=== PATIENT | female | born 1990 | race Caucasian/White ===

== ENCOUNTER 2017-11-23 12:30 | Inpatient (IN) | payer OTHER ==
[2017-11-23] MEDS ORDERED: Ringers Lactate 1,000 ML IV PRN (14:45)
[2017-11-23] MEDS ORDERED: CEFAZOLIN/SWI 2gm 2 GM/20 ML SYR IV ONE (14:48)
[2017-11-23] MEDS ORDERED: NA CIT/CITRIC AC 30 ML ORAL UDC PO ONE (14:58)
[2017-11-23] MEDS ORDERED: METOCLOPRAMIDE 10 MG/2mL INJ IV SCH (15:00)
[2017-11-23] MEDS ORDERED: Ringers Lactate 1,000 ML IV SCH (15:00)
[2017-11-23] MEDS ORDERED: BUPIVACAINE 0.75% (PF) 2 ML SP ONE (15:35)
[2017-11-23] MEDS ORDERED: MORPHINE SULFATE/PF 1 MG/ML (10 ML AMP) ONE (15:39)
[2017-11-23] MEDS ORDERED: LIDOCAINE 1% MPF 5 ML VIAL ONE (15:39)
[2017-11-23 15:46] LABS: RPR Titer ND
[2017-11-23 15:55] LABS: Absolute Lymphocytes (CBC) 2.1 K/uL (0.7-4.9); Absolute Monocytes 1.3 K/uL (0.1-1.3); Absolute Neutrophil 7.7 K/uL (1.8-8.0); Basophils % 0.1 % (0-1.3); Eosinophils % 0.5 % (0-4.4); Hematocrit 31.6 % (36.0-45.0); Lymphocytes % 18.6 % (15.3-44.8); MCH 30.1 pg (27.0-35.0); MCV 87.2 fL (80-100); MPV 8.7 fL (7.6-11.3); Monocytes % 11.9 % (3.3-12.3); RBC Red Blood Cell Count 3.62 M/uL (3.86-4.86)
[2017-11-23 16:01] LABS: Urine Appearance CLEAR; Urine Bilirubin NEGATIVE (NEG); Urine Blood NEGATIVE (NEG); Urine Color YELLOW; Urine Glucose 2+ (NEG); Urine Protein NEGATIVE (NEG)
[2017-11-23 16:06] LABS: Urine Microscopic Reflex NO UMIC
[2017-11-23] MEDS ORDERED: EPHEDRINE SULF 50 MG/ML SYR ONE (16:20)
[2017-11-23] MEDS ORDERED: OXYTOCIN 10 UNIT/ML ML IV ONE (16:27)
[2017-11-23] MEDS ORDERED: FENTANYL CITR 250 MCG/5 ML ONE (16:41)
[2017-11-23] MEDS ORDERED: Oxycodone HCl/Acetaminophen 1 TAB TAB PO PRN (17:03)
[2017-11-23] MEDS ORDERED: BISACODYL 10 MG RECTAL SUPP RECT PRN (17:03)
[2017-11-23] MEDS ORDERED: ACETAMINOPHEN 500 MG TAB PO PRN (17:03)
[2017-11-23] MEDS ORDERED: DOCUSATE NA/SENNA CONC 1 TAB PO PRN (17:03)
[2017-11-23] MEDS ORDERED: KETOROLAC 30 MG/ML INJ IV PRN (17:05)
[2017-11-23] MEDS ORDERED: MORPHINE 4 MG/ML SYR IV PRN (17:05)
--- NOTE | 2017-11-23 17:10 | P.OP ---
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 Suh) Estimated blood loss: 800cc Specimen: cord blood, placenta Findings: female , cephalic presentation, normal uterus,ovaries and tubes Operative Technique: The patient was taken to the operating room where spinal anesthesia was administered without difficulty. The patient was prepped and draped in the usual sterile fashion in the dorsal supine position with a leftward tilt. A Pfannenstiel skin incision was made with the scalpel and carried through to the underlying layer of fascia using the scalpel. The fascia was incised in the midline and extended laterally using Londono scissors. Los clamps were used to elevate the superior aspect of the fascial incision, which was elevated, and the underlying rectus muscles were dissected off bluntly and using Londono scissors. Attention was then turned to the inferior aspect of the fascial incision, which in similar fashion was grasped with Los clamps, elevated, and the underlying rectus muscles were dissected off bluntly and using the Bovie. The rectus muscles were dissected in the midline. The peritoneum was identified and entered using Metzenbaum scissors; this incision was extended superiorly and inferiorly with good visualization of the bladder. The bladder blade was inserted. The vesicouterine peritoneum was identified and entered sharply using Metzenbaum scissors. This incision was extended laterally and the bladder flap was created digitally. The bladder blade was reinserted. The lower uterine segment was incised in a transverse fashion using the scalpel and extended using bandage scissors as well as manual traction. Clear fluid was noted. The was subsequently delivered using a Arleth vacuum due to anteflexed head and difficulty in delivering the 's head without the Arleth. The nose and mouth were bulb suctioned. The cord was clamped and cut. The infant was subsequently handed to the awaiting nursery nurse. The placenta was delivered spontaneously intact with a three-vessel cord noted. The uterus was exteriorized and cleared of all clots and debris. The uterine incision was repaired in 2 layers using 1 vicryl sutures. Hemostasis was visualized. The uterus was returned to the abdomen. The uterine incision was reexamined and it was noted to be hemostatic. The rectus muscles were reapproximated in the midline using 0 Vicryl. The fascia was closed with 1 PDS suture, the subcutaneous layer was closed with 2-0 plain gut, and the skin was closed with 3.0 vicryl on a Dave needle. Sponge, lap, and instrument counts were correct x2. The patient was stable at the completion of the procedure and was subsequently transferred to the recovery room in stable condition. Female infant delivered on 11/23/2017 at 4:24 p.m.. Apgars 9 and 9. Weight was 8 lb 14 oz. Complications: None Drain(s): Urinary catheter Transferred to: Recovery Room Condition: Good
[2017-11-23] MEDS ORDERED: CARBOPROST TROME 250 MCG/ML IM ONE (17:38)
[2017-11-23] MEDS ORDERED: METHYLERGONOVINE 0.2MG/ML AMP IM ONE (17:39)
[2017-11-23 18:24] VITALS: BMI 40.6
[2017-11-23] MEDS ORDERED: INFLUENZA VACCINE (for 3y+) 0.5 ML DOSE IMVAC ONE (20:00)
--- NOTE | 2017-11-24 02:22 | HP ---
Date of Admission: 11/23/2017 History Of Present Illness: Viola is a 27-year-old, 2, para 1-0-0-1, who presents at 38 week s gestation for repeat section. The patient was seen in the office today and reported and n o movements and was having pelvic pressure. The patient was found to be 3-4 cm dilated. There fore, decision was made to send patient to Labor and Delivery for repeat section. The patie nt denies vaginal bleeding. She is having some mucousy discharge. She reports irregular contraction s. The patient's care has been complicated by obesity and anemia. See records for further details. Past Medical History: Significant for obesity. Past Surgical History: in 2006. 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 No abnormal Paps. Social History: She is . Denies tobacco, alcohol or drug use. Family History: Noncontributory. The patient has been seen by [facility] as well for this and fe parag growth has been above-average. The patient requested a tubal ligation, however, she was denied b y the administration. Physical Examination: Vital Signs: On admission, the patient's blood pressure is 113/61, pulse of 102, respirations 18. T he patient is afebrile. General: The patient is resting in bed, slightly anxious. Head and Neck: Normocephalic, atraumatic. Neck: Supple. Heart: Regular rate and rhythm. Respiratory: Symmetric nonlabored breathing. Abdomen: Gravid. Larger than dates. Bilateral lower extremities mild edema bilaterally. Vaginal: 3 cm dilated, 60% effaced, -3 station. Membranes intact. Vertex presentation. Laboratory Data: heart rate monitoring reveals baseline heart rate of 140, category 2 tr acing. [place], irregular contractions noted. Assessment And Plan: Viola Yadav is obese, 27-year-old, 2, para 1-0-0-1 at 38 weeks gestat ion, complaining of decreased movements and contractions with a history of 1 prior sec tion, presents for repeat section today. Routine preoperative medications given including 2 g of Ancef. Anticipate routine section. Hemoglobin is 10.9, hematocrit is 31.6, Rh positi ve. /CARMEN Voice ID: [id number]
[2017-11-24] MEDS ORDERED: OXYTOCIN 10 UNIT/ML ML IV ONE (03:20)
[2017-11-24] MEDS ORDERED: LIDOCAINE 1% MPF 30 ML VIAL ONE (03:21)
[2017-11-24] MEDS ORDERED: OXYTOCIN/LR 0 UNIT/0 ML BAG IV ONE (03:21)
[2017-11-24] MEDS ORDERED: CARBOPROST TROME 250 MCG/ML IM ONE (03:21)
[2017-11-24] MEDS ORDERED: METHYLERGONOVINE 0.2MG/ML AMP IM ONE (03:21)
[2017-11-24] MEDS ORDERED: MIDAZOLAM HCL 2 MG/2 ML INJ ONE (03:29)
[2017-11-24] MEDS ORDERED: MEPERIDINE HCL 50 MG/ML AMP ONE (03:29)
[2017-11-24 03:36] LABS: RPR (Rapid Plasma Reagin) NON-REACT (NON-REACT)
[2017-11-24 05:16] LABS: Absolute Lymphocytes (CBC) 2.1 K/uL (0.7-4.9); Absolute Neutrophil 11.5 K/uL (1.8-8.0); Basophils % 0.1 % (0-1.3); Eosinophils % 0.2 % (0-4.4); Hematocrit 30.3 % (36.0-45.0); Lymphocytes % 13.3 % (15.3-44.8); MCH 29.9 pg (27.0-35.0); MCV 86.6 fL (80-100); MPV 8.6 fL (7.6-11.3); Monocytes % 12.8 % (3.3-12.3)
[2017-11-24] MEDS: Oxycodone HCl/Acetaminophen 1 TAB TAB PO PRN ×3 (07:40→19:30)
[2017-11-24] MEDS ORDERED: FAMOTIDINE 20 MG/2 ML VIAL IV ONE (14:58)
[2017-11-24] MEDS ORDERED: Tdap (Diph,Pertuss(Acell),Tet Vac) 0.5 ML SYR IMVAC ONE ×2 (18:10→18:19)
[2017-11-24] MEDS ORDERED: INFLUENZA VACCINE (for 3y+) 0.5 ML DOSE IMVAC ONE (18:19)
[2017-11-25] MEDS: IBUPROFEN 200 MG TAB PO PRN ×2 (05:33→10:38)
[2017-11-25 07:58] VITALS: BP 116/80; TEMP 97.9
[2017-11-27 04:21] LABS: HBsAG Nonreactive (Nonreactive)
== END 2017-11-25 10:55 | disposition home or self-care (01) | DRG 788 ==
LOC: 2ND-WC 14:37
PROVIDERS: ADMIT Student in an Organized Health Care Education/Training Program; ATTEND Student in an Organized Health Care Education/Training Program
PROC: 10D07Z6 Extraction of Products of Conception, Vacuum, Via Natural or Artificial Opening (ICD-10-PCS; 2017-11-23)
PROC: 10D00Z1 Extraction of Products of Conception, Low, Open Approach (ICD-10-PCS; principal; 2017-11-23 16:00)
DX: O36.8130 Decreased fetal movements, third trimester, not applicable or unspecified (principal); O62.2 Other uterine inertia; Z3A.38 38 weeks gestation of pregnancy; Z37.0 Single live birth; O99.213 Obesity complicating pregnancy, third trimester; O99.013 Anemia complicating pregnancy, third trimester; D64.9 Anemia, unspecified; O34.211 Maternal care for low transverse scar from previous cesarean delivery; O76 Abnormality in fetal heart rate and rhythm complicating labor and delivery; O36.63X0 Maternal care for excessive fetal growth, third trimester, not applicable or unspecified
CPT/HCPCS: 36415; 81003; 85025; 86592; 86900; 86901; 87340; 88307; 90715; J0690; J2175; J2210; J2250; J2590; J2765; Q2035

== ENCOUNTER 2018-01-11 20:20 | Emergency (ER) | payer OTHER ==
--- NOTE | 2018-01-11 21:15 | EDPHYS ---
Physician Documentation [facility] Name: Viola Yadav Age: 27 yrs Sex: Female : 1990 Arrival Date: 01/11/2018 Time: 20:26 Bed 7 Private MD: ED Physician Milad Schulz HPI: 01/11 21:12 This 27 yrs old Female presents to ER via Ambulatory with complaints of Psych gs Problem. 21:12 The patient presents to the emergency department with depression, paranoia, psychosis. gs Onset: The symptoms/episode began/occurred 2 week(s) ago, and became persistent. Associated signs and symptoms: Pertinent negatives: homicidal ideation, suicide ideation. Severity of symptoms: At their worst the symptoms were moderate in the emergency department the symptoms are unchanged. The patient has experienced similar episodes in the past. 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 - Social history:: Smoking status: Patient/guardian denies using tobacco, Patient uses alcohol, but reports only rare drinking. Patient/guardian denies using street drugs. - Ebola Screening: : Patient denies travel to an Ebola-affected area in the 21 days before illness onset. ROS: 21:12 All other systems are negative. gs Exam: 21:12 Head/Face: Normocephalic, atraumatic. Eyes: Pupils equal round and reactive to light, gs extra-ocular motions intact. Lids and lashes normal. Conjunctiva and sclera are non-icteric and not injected. Cornea within normal limits. Periorbital areas with no swelling, redness, or edema. ENT: Nares patent. No nasal discharge, no septal abnormalities noted. Tympanic membranes are normal and external auditory canals are clear. Oropharynx with no redness, swelling, or masses, exudates, or evidence of obstruction, uvula midline. Mucous membranes moist. Neck: Trachea midline, no thyromegaly or masses palpated, and no cervical lymphadenopathy. Supple, full range of motion without nuchal rigidity, or vertebral point tenderness. No Meningismus. Chest/axilla: Normal chest wall appearance and motion. Nontender with no deformity. No lesions are appreciated. Cardiovascular: Regular rate and rhythm with a normal S1 and S2. No gallops, murmurs, or rubs. Normal PMI, no JVD. No pulse deficits. Respiratory: Lungs have equal breath sounds bilaterally, clear to auscultation and percussion. No rales, rhonchi or wheezes noted. No increased work of breathing, no retractions or nasal flaring. Abdomen/GI: Soft, non-tender, with normal bowel sounds. No distension or tympany. No guarding or rebound. No evidence of tenderness throughout. Back: No spinal tenderness. No costovertebral tenderness. Full range of motion. MS/ Extremity: Pulses equal, no cyanosis. Neurovascular intact. Full, normal range of motion. Neuro: Awake and alert, GCS 15, oriented to person, place, time, and situation. Cranial nerves II-XII grossly intact. Motor strength 5/5 in all extremities. Sensory grossly intact. Cerebellar exam normal. Normal gait. 21:12 Constitutional: The patient appears alert, awake. 21:12 Skin: injury, hash ramsay left forearm very superficial. 21:12 Psych: Behavior/mood is pleasant, Affect is calm, Oriented to person, place, time, Patient has no thoughts/intents to harm self or others. Judgement / Insight is normal. Memory is normal. Delusions/hallucinations are present and described as has int thought of someone taking her baby. Vital Signs: 20:31 BP 131 / 85; Pulse 81; Resp 18; Temp 97.9; Pulse Ox 98% on R/A; Weight 74.84 kg (R); aj1 Height 5 ft. 0 in. (152.40 cm) (R); Pain 0/10; 21:10 BP 129 / 87; Pulse 80; Resp 17 S; Pulse Ox 98% on R/A; cc3 20:31 Body Mass Index 32.22 (74.84 kg, 152.40 cm) aj1 MDM: 20:54 Patient medically screened. gs 21:12 Differential diagnosis: acute psychotic break, depression, psychosis secondary to gs non-compliance. Data reviewed: vital signs, nurses notes. ED course: made appt at [facility] for am, mom comfortable watching tonite both good with plan. Administered Medications: No medications were administered Disposition: 01/11/18 21:15 Discharged to Home. Impression: Major depressive disorder, recurrent, severe with psychotic symptoms. - Condition is Stable. - Discharge Instructions: Major Depressive Disorder, [id number]. - Medication Reconciliation Form, Thank You Letter, Antibiotic Education, Prescription Opioid Use form. - Follow up: Private Physician; When: Tomorrow; Reason: Re-evaluation by your physician. Signatures: Leslee Hyatt RN RN aj1 Milad Schulz MD MD gs Marzena Cramer cc3 Corrections: (The following items were deleted from the chart) 21:24 21:15 01/11/2018 21:15 Discharged to Home. Impression: Major depressive disorder, cc3 recurrent, severe with psychotic symptoms. Condition is Stable. Forms are Medication Reconciliation Form, Thank You Letter, Antibiotic Education, Prescription Opioid Use. Follow up: Private Physician; When: Tomorrow; Reason: Re-evaluation by your physician. gs
--- NOTE | 2018-01-11 21:15 | ER ---
Nurse's Notes [facility] Name: Viola Yadav Age: 27 yrs Sex: Female : 1990 Arrival Date: 01/11/2018 Time: 20:26 Bed 7 Private MD: Diagnosis: Major depressive disorder, recurrent, severe with psychotic symptoms Presentation: 01/11 20:27 Presenting complaint: Patient states: "I went and saw my psychologist and she said that aj1 I needed medication really bad so I need to come to the emergency room" Denies suicidal or homicidal ideation. Reports hallucinations, lashing out at people for the past 5 weeks. Transition of care: patient was not received from another setting of care. Onset of symptoms was December 2017. Risk Assessment: Do you want to hurt yourself or someone else? Patient reports no desire to harm self or others. Initial Sepsis Screen: Does the patient meet any 2 criteria? No. Patient's initial sepsis screen is negative. Does the patient have a suspected source of infection? No. Patient's initial sepsis screen is negative. Care prior to arrival: None. 20:27 Method Of Arrival: Ambulatory aj1 20:27 Acuity: SAVANNAH 3 aj1 Triage Assessment: 20:31 General: Appears in no apparent distress. comfortable, Behavior is calm, cooperative, aj1 appropriate for age. Pain: Denies pain. Neuro: Level of Consciousness is awake, alert, obeys commands. Cardiovascular: Patient's skin is warm and dry. Respiratory: Airway is patent Respiratory effort is even, unlabored, Respiratory pattern is regular, symmetrical. 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 - Social history:: Smoking status: Patient/guardian denies using tobacco, Patient uses alcohol, but reports only rare drinking. Patient/guardian denies using street drugs. - Ebola Screening: : Patient denies travel to an Ebola-affected area in the 21 days before illness onset. Screenin:36 Abuse screen: Denies threats or abuse. Denies injuries from another. Nutritional cc3 screening: No deficits noted. Tuberculosis screening: No symptoms or risk factors identified. Fall Risk Ambulatory Aid- None/Bed Rest/Nurse Assist (0 pts). Gait- Normal/Bed Rest/Wheelchair (0 pts) Mental Status- Oriented to own ability (0 pts). Assessment: 20:36 Reassessment: Patient appears in no apparent distress at this time. Patient and/or cc3 family updated on plan of care and expected duration. Pain level reassessed. Patient is alert, oriented x 3, equal unlabored respirations, skin warm/dry/pink. 20:57 Reassessment: [facility] screener contacted and speaking with Dr. Schulz at this time. ak1 21:00 Reassessment: Patient appears in no apparent distress at this time. Patient and/or cc3 family updated on plan of care and expected duration. Pain level reassessed. Patient is alert, oriented x 3, equal unlabored respirations, skin warm/dry/pink. Patient's relative said the patient is not acting like herself the way when Dr. Schulz have spoken to her earlier. Informed Dr. Schulz and he's talking now with the patient and her relatives. 21:04 Reassessment: pt given address and phone number to [facility] in order to be seen ak tomorrow per providers verbal order. 21:20 Reassessment: Patient appears in no apparent distress at this time. Patient and/or cc3 family updated on plan of care and expected duration. Pain level reassessed. Patient is alert, oriented x 3, equal unlabored respirations, skin warm/dry/pink. Dr. Schulz discharged the patient home with instructions given. No IV cannula in situ. Patient left ER vitally stable and ambulatory with her family. Psych: 20:36 Subjective: Patient's mood is neutral Delusions are denied, Hallucinations are cc3 auditory, olfactory. Objective: Patient is cooperative, Speech is normal, Affect is appropriate. Interventions: Patient reassessed during use of restraints. Patient is physically safe. Patient's cardiac status is stable. Patient's respirations are even and unlabored. Patient has good circulation in all extremities as indicated by capillary refill < 3 seconds. Patient's ROM assessed and is intact. Patient nutrition and hydration needs will continue to be monitored and addressed. Patient hygiene and elimination needs met. Patient assessed for signs of distress. Patient remains reasonably comfortable at this time. Assisted patient in de-escalation of behavior by removing stimuli causing behavior where possible. Suicide Risk Assessment: Sad Person Scale: Sex of patient: Female: Score 0 points. Age of patient: Score 1 point if patient 15-34. Depression: Score 0 point if signs of depression are not present. Safety Checks: Visitors are present. Pt denies substance abuse. 20:36 Commitment: N/A. cc3 Vital Signs: 20:31 BP 131 / 85; Pulse 81; Resp 18; Temp 97.9; Pulse Ox 98% on R/A; Weight 74.84 kg (R); aj1 Height 5 ft. 0 in. (152.40 cm) (R); Pain 0/10; 21:10 BP 129 / 87; Pulse 80; Resp 17 S; Pulse Ox 98% on R/A; cc3 20:31 Body Mass Index 32.22 (74.84 kg, 152.40 cm) aj1 ED Course: 20:26 Patient arrived in ED. am2 20:30 Triage completed. aj1 20:31 Arm band placed on Patient placed in an exam room. aj1 20:34 Kev Orozco RN is Primary Nurse. rr5 20:36 Marzena Cramer is Primary Nurse. cc3 20:36 Patient has correct armband on for positive identification. Bed in low position. Call cc3 light in reach. Side rails up X 1. Pulse ox on. NIBP on. 20:41 Milad Schulz MD is Attending Physician. 21:20 No provider procedures requiring assistance completed. Patient did not have IV access cc3 during this emergency room visit. Administered Medications: No medications were administered Outcome: 21:15 Discharge ordered by . 21:20 Discharged to home ambulatory, with family. cc3 21:20 Condition: stable 21:20 Discharge instructions given to patient, family, Instructed on discharge instructions, follow up and referral plans. 21:24 Patient left the ED. cc3 Signatures: Leslee Hyatt RN RN aj1 Julieth Crane RN RN ak1 Sravani Murphy am2 Milad Schulz MD MD Marzena Cramer cc3 Kev Orozco RN RN rr5
[2018-01-11 23:15] VITALS: BP 131/85; TEMP 97.9; O2SAT 98
== END 2018-01-11 21:24 | disposition home or self-care (01) ==
LOC: ER 20:20
DX: F33.3 Major depressive disorder, recurrent, severe with psychotic symptoms (principal)
CPT/HCPCS: 99284

== ENCOUNTER 2018-01-30 16:54 | Emergency (ER) | payer OTHER, SELFPAY ==
[2018-01-30] MEDS ORDERED: NA CHLORIDE 0.9% 1,000 ML ONE (17:17)
[2018-01-30 17:37] LABS: Absolute Lymphocytes (CBC) 1.3 K/uL (0.7-4.9); Absolute Monocytes 0.8 K/uL (0.1-1.3); Absolute Neutrophil 7.1 K/uL (1.8-8.0); Basophils % 0.4 % (0-1.3); Eosinophils % 0.3 % (0-4.4); Hematocrit 39.4 % (36.0-45.0); Lymphocytes % 14.5 % (15.3-44.8); MCH 29.2 pg (27.0-35.0); MCV 86.9 fL (80-100); MPV 9.4 fL (7.6-11.3); Monocytes % 8.2 % (3.3-12.3); RBC Red Blood Cell Count 4.53 M/uL (3.86-4.86)
[2018-01-30 17:55] LABS: ALT/SGPT 29 U/L (12-78); AST/SGOT 10 U/L (15-37); Albumin 3.9 g/dL (3.4-5.0); Alkaline Phosphatase 102 U/L (45-117); BUN Blood Urea Nitrogen 8 mg/dL (7-18); Bicarbonate 24 mmol/L (21-32); Bilirubin Direct 0.1 mg/dL (0-0.2); Bilirubin Total 0.5 mg/dL (0.2-1.0); Glucose Level 120 mg/dL (74-106); Lipase 164 U/L (73-393); Potassium 3.3 mmol/L (3.5-5.1); Protein, Total 7.8 g/dL (6.4-8.2); Sodium Level 137 mmol/L (136-145)
[2018-01-30 18:01] LABS: Urine Blood TRACE (NEG); Urine Glucose NEGATIVE (NEG); Urine Protein TRACE (NEG); Urine Specific Gravity 1.015 (1.005-1.030)
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
[2018-01-30] MEDS ORDERED: POTASSIUM 25 MEQ EFFERV TAB ONE (18:22)
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
[2018-01-30 19:09] VITALS: TEMP 98; O2SAT 96
[2018-01-30 19:10] VITALS: BP 113/75
== END 2018-01-30 19:04 | disposition home or self-care (01) ==
LOC: ER 16:54
DX: S16.1XXA Strain of muscle, fascia and tendon at neck level, initial encounter (principal); E87.6 Hypokalemia; F32.9 Major depressive disorder, single episode, unspecified; F41.9 Anxiety disorder, unspecified; V89.2XXA Person injured in unspecified motor-vehicle accident, traffic, initial encounter
CPT/HCPCS: 36415; 70450; 71260; 72125; 74177; 80048; 80076; 81003; 81025; 83690; 85025; 86850; 86900; 86901; 99285; J7030; Q9967

== ENCOUNTER 2018-02-05 16:29 | Emergency (ER) | payer SELFPAY ==
[2018-02-05 17:28] LABS: Absolute Lymphocytes (CBC) 1.6 K/uL (0.7-4.9); Absolute Monocytes 0.8 K/uL (0.1-1.3); Absolute Neutrophil 6.9 K/uL (1.8-8.0); Basophils % 0.5 % (0-1.3); Eosinophils % 0.1 % (0-4.4); Hematocrit 39.4 % (36.0-45.0); Lymphocytes % 16.8 % (15.3-44.8); MCH 29.6 pg (27.0-35.0); MCV 86.6 fL (80-100); MPV 9.3 fL (7.6-11.3); Monocytes % 8.2 % (3.3-12.3); RBC Red Blood Cell Count 4.55 M/uL (3.86-4.86)
[2018-02-05 17:31] LABS: Protime INR 1.09
[2018-02-05 17:48] LABS: ALT/SGPT 26 U/L (12-78); AST/SGOT 16 U/L (15-37); Alkaline Phosphatase 90 U/L (45-117); BUN Blood Urea Nitrogen 4 mg/dL (7-18); Bicarbonate 26 mmol/L (21-32); Bilirubin Direct 0.1 mg/dL (0-0.2); Bilirubin Total 0.4 mg/dL (0.2-1.0); Glucose Level 89 mg/dL (74-106); Potassium 3.2 mmol/L (3.5-5.1); Protein, Total 7.8 g/dL (6.4-8.2); Sodium Level 139 mmol/L (136-145)
--- NOTE | 2018-02-05 18:16 | ER ---
Nurse's Notes [facility] Name: Viola Menendez Age: 27 yrs Sex: Female : 1990 Arrival Date: 02/05/2018 Time: 16:31 Bed 6 Private MD: Diagnosis: Major depressive disorder, recurrent Presentation: 02/05 16:38 Presenting complaint: EMS states: Pt reports taking 7-tylenol 3, 6- flexeril 10mg, la1 4-motrin 200mg in a reported suicide attempt, pt now reports that she took it to help her go to sleep and help her feel better. Pt currently crying, mental health deputy at bedside. Transition of care: patient was not received from another setting of care. Onset of symptoms was February 05, 2018. Risk Assessment: Do you want to hurt yourself or someone else? Patient reports desire/thoughts of hurting themselves or someone else. Provider notified. Initial Sepsis Screen: Does the patient meet any 2 criteria? No. Patient's initial sepsis screen is negative. Does the patient have a suspected source of infection? No. Patient's initial sepsis screen is negative. Care prior to arrival: None. 16:38 Method Of Arrival: EMS: [facility] la1 16:38 Acuity: SAVANNAH 2 la1 Historical: - Allergies: 16:38 NKA; la1 - Home Meds: 16:38 Codeine Oral [Active]; Risperdal Oral [Active]; Zoloft Oral [Active]; la1 - PMHx: 16:41 Anxiety; Depression; la1 - Immunization history:: Adult Immunizations up to date. - Social history:: Smoking status: unknown. - Ebola Screening: : No symptoms or risks identified at this time. - Family history:: not pertinent. Screenin:47 Abuse screen: Denies threats or abuse. Nutritional screening: No deficits noted. la1 Tuberculosis screening: No symptoms or risk factors identified. Fall Risk None identified. 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 General: Appears in no apparent distress. Behavior is calm, cooperative. Pain: Denies pain. Neuro: Level of Consciousness is awake, alert, obeys commands, Oriented to person, place, time, situation, Speech is normal, Pupils are PERRLA. Cardiovascular: Capillary refill < 3 seconds Patient's skin is warm and dry. Respiratory: Airway is patent Respiratory effort is even, unlabored, Respiratory pattern is regular, symmetrical, Breath sounds are clear bilaterally. GI: No signs and/or symptoms were reported involving the gastrointestinal system. : No signs and/or symptoms were reported regarding the genitourinary system. 17:49 Reassessment: Patient appears in no apparent distress at this time. No changes from la1 previously documented assessment. Patient and/or family updated on plan of care and expected duration. Pain level reassessed. Patient is alert, oriented x 3, equal unlabored respirations, skin warm/dry/pink. 19:15 General: Appears in no apparent distress. Behavior is calm, cooperative. Pain: Denies ea pain. Neuro: Level of Consciousness is awake, alert, obeys commands, Oriented to person, place, time, situation, Speech is normal. Cardiovascular: Patient's skin is warm and dry. Respiratory: Airway is patent Respiratory effort is even, unlabored, Respiratory pattern is regular, symmetrical, Breath sounds are clear bilaterally. GI: No signs and/or symptoms were reported involving the gastrointestinal system. : No signs and/or symptoms were reported regarding the genitourinary system. 20:44 Reassessment: Poison control staff member called for follow up on pt status. Reported ea to call if any assistance is needed. 21:23 Reassessment: [place] [employer] representative at bedside. ea 22:05 Reassessment: Patient and/or family updated on plan of care and expected duration. Pain ea level reassessed. Patient is alert, oriented x 3, equal unlabored respirations, skin warm/dry/pink. 22:21 Reassessment: Patient and/or family updated on plan of care and expected duration. Pain ea level reassessed. Patient is alert, oriented x 3, equal unlabored respirations, skin warm/dry/pink. Discharge instructions given to patient, verbalized the understanding of instruction. Pt denies SI verbalized the understanding to seek help if feelings of feeling low, reports she has [place] [facility] number and will follow up. Psych: 16:43 Subjective: Patient's mood is sad, Delusions are denied, Hallucinations are denied la1 Having thoughts of suicide. Objective: Patient is cooperative, Speech is soft, Affect is appropriate. Interventions: Removed personal items and placed in bag. Patient placed in hospital gown. Suicide Risk Assessment: Sad Person Scale: Sex of patient: Female: Score 0 points. Age of patient: Score 1 point if patient 15-34. Depression: Score 1 point if signs of depression are present. Previous Attempt: Score 0 point if patient has not previously attempted suicide. Substance Abuse: Score 0 point if patient does not abuse alcohol or drugs. Rational Thinking: Score 0 point if patient has rational thinking. Social Support: Score 1 point if social support is lacking and/or unavailable. Organized Plan: Score 1 point if patient had a plan in place. Relationship: Score 1 point if patient is , , , or for a single male Chronic Sickness: Score 0 point if patient does not have a chronic illness, debilitating, or severe disorder. TOTAL POINTS: If total points are 5-6, proposed clinical action is to strongly consider hospitalization, depending upon confidence in the follow-up arrangement. Implement suicide precautions. Safety Checks: Personal items have been removed. Door is open. No visitors are present at this time. Pt denies substance abuse. Commitment: Patient will be an involuntary commitment. Vital Signs: 16:36 BP 128 / 72; Pulse 79; Resp 20; Temp 97.8; Pulse Ox 98% on R/A; la1 18:21 BP 102 / 66; Pulse 75; Resp 17; Pulse Ox 100% on R/A; jb1 22:20 BP 113 / 85; Pulse 93; Resp 20; Temp 98.6; Pulse Ox 99% on R/A; ra1 ED Course: 16:31 Patient arrived in ED. la1 16:32 Calvin Claudio RN is Primary Nurse. la1 16:34 Kevin De Anda MD is Attending Physician. hilton 16:36 Arm band placed on left wrist. la1 16:40 Triage completed. la1 16:47 Bed in low position. Call light in reach. la1 16:55 EKG done, by care technician. reviewed by Kevin De Anda MD. 3 17:18 Initial lab(s) drawn, by id, sent to lab. Inserted saline lock: 22 gauge in right jb1 antecubital area, using aseptic technique. Blood collected. 17:19 Safety checks: Items removed: yes. Door open/sign placed on door: yes. Family/friend jb1 present: no. Sitter present: Yes. 17:30 Safety checks: Items removed: yes. Door open/sign placed on door: yes. Family/friend jb1 present: no. Sitter present: Yes. 17:44 Safety checks: Items removed: yes. Door open/sign placed on door: yes. Family/friend jb1 present: no. Sitter present: Yes. 18:01 Safety checks: Items removed: yes. Door open/sign placed on door: yes. Family/friend jb1 present: no. Sitter present: Yes. 18:14 Safety checks: Items removed: yes. Door open/sign placed on door: yes. Family/friend jb1 present: no. Sitter present: Yes. 18:29 Safety checks: Items removed: yes. Door open/sign placed on door: yes. Family/friend jb1 present: no. Sitter present: Yes. 18:41 Safety checks: Items removed: yes. Door open/sign placed on door: yes. Family/friend jb1 present: no. Sitter present: Yes. 19:00 Safety checks: Items removed: yes. Door open/sign placed on door: yes. Family/friend oe present: no. Sitter present: Yes. 19:15 Safety checks: Items removed: yes. Door open/sign placed on door: yes. Family/friend oe present: no. Sitter present: Yes. 19:30 Safety checks: Items removed: yes. Door open/sign placed on door: yes. Family/friend oe present: no. Sitter present: Yes. 19:45 Safety checks: Items removed: yes. Door open/sign placed on door: yes. Family/friend oe present: no. Sitter present: Yes. 20:00 items removed from room for safety, door remains open. No family/friends present. ra1 Sitter present. Bed low and locked, side rail up x1. call light within reach. 20:15 Safety check, items removed from room, door remains open. No family/friends present. ra1 Sitter at bedside. Bed low and locked, side rails up x1, call light within reach. 20:30 Safety check, items removed from room, door remains open, no family/friends present, ra1 sitter at bedside. Bed low and locked, side rail up x1, call hall within reach. 20:45 Safety check, items removed from room, door remains open, No family/friends present. ra1 Sitter at bedside. 21:00 Safety check, items removed from room, door remains open, no family/friends present, ra1 sitter at bedside. 21:15 Safety check, items removed from room, door remains open, no family/friends present, ra1 sitter present. 21:30 Safety check, items removed from room, door remains open, [place] [employer] representative at ra1 bedside, sitter at bedside. 21:44 Safety check, items removed from room, door remains open, no family/friend present, ra1 sitter at bedside. 22:00 Safety check, items removed from room, door remains open, no family/friend present, ra1 sitter at bedside. 22:15 Safety check, items removed from room, door remains open, no family/friends present, ra1 sitter at bedside. 22:22 No provider procedures requiring assistance completed. IV discontinued, intact, ea bleeding controlled, No redness/swelling at site. Pressure dressing applied. Administered Medications: 18:20 Drug: NS 0.9% 1000 ml Route: IV; Rate: 1 bolus; Site: right femoral; la1 19:20 Follow up: Response: No adverse reaction; IV Status: Completed infusion; IV Intake: ea 1000ml 19:21 Not Given (Patient Refused): Potassium Effervescent Tablet 25 mEq PO once; dissolve in ea 4 ounces of water or juice 19:22 Drug: Potassium Chloride 20 mEq Route: PO; ea 20:29 Follow up: Response: No adverse reaction ea Intake: 19:20 IV: 1000ml; Total: 1000ml. ea Outcome: 18:15 ER care complete, transfer ordered by . hilton 21:48 Discharge ordered by . rock 22:22 Discharge instructions given to patient, Instructed on discharge instructions, follow ea up and referral plans. Demonstrated understanding of instructions, follow-up care. 22:25 Condition: improved ea 22:26 Discharged to home ambulatory, with sister ea 22:28 Patient left the ED. ea Signatures: Mike Fuentes jb1 Kevin De Anda MD MD cha Attema, Lee RN RN la1 Kevin Mckeon PA PA cp Espinosa, Orlando oe Antunez, Elena, RN RN ea Montes, Shakira 3 Vish Cook ra1 Corrections: (The following items were deleted from the chart) 19:47 19:40 Safety checks: Items removed: yes. Door open/sign placed on door: yes. oe Family/friend present: no. Sitter present: Yes. oe 22:25 22:21 Reassessment: Patient and/or family updated on plan of care and expected ea duration. Pain level reassessed. Patient is alert, oriented x 3, equal unlabored respirations, skin warm/dry/pink. Discharge instructions given to patient, verbalized the understanding of instruction. ea
--- NOTE | 2018-02-05 18:16 | EDPHYS ---
Physician Documentation [facility] Name: Viola Menendez Age: 27 yrs Sex: Female : 1990 Arrival Date: 02/05/2018 Time: 16:31 Bed 6 Private MD: ED Physician Kevin De Anda HPI: 02/05 16:43 This 27 yrs old Female presents to ER via EMS with complaints of Suicidal hilton Ideation. 16:43 The patient presents to the emergency department with depression, a history of a hilton suicide gesture, suicide ideation, and the patient has a plan, od. Onset: The symptoms/episode began/occurred just prior to arrival, today. Past psychiatric history: Prior diagnosis: depression, Psychiatric medications include: Zoloft. Associated signs and symptoms: The patient has no apparent associated signs or symptoms. Severity of symptoms: At their worst the symptoms were mild in the emergency department the symptoms are unchanged. The patient has experienced similar episodes in the past, several times. Historical: - Allergies: 16:38 NKA; la1 - Home Meds: 16:38 Codeine Oral [Active]; Risperdal Oral [Active]; Zoloft Oral [Active]; la1 - PMHx: 16:41 Anxiety; Depression; la1 - Immunization history:: Adult Immunizations up to date. - Social history:: Smoking status: unknown. - Ebola Screening: : No symptoms or risks identified at this time. - Family history:: not pertinent. ROS: 16:43 Constitutional: Negative for fever, chills, and weight loss, Eyes: Negative for injury, hilton pain, redness, and discharge, ENT: Negative for injury, pain, and discharge, Neck: Negative for injury, pain, and swelling, Cardiovascular: Negative for chest pain, palpitations, and edema, Respiratory: Negative for shortness of breath, cough, wheezing, and pleuritic chest pain, Abdomen/GI: Negative for abdominal pain, nausea, vomiting, diarrhea, and constipation, Back: Negative for injury and pain, : Negative for injury, bleeding, discharge, and swelling, MS/Extremity: Negative for injury and deformity, Skin: Negative for injury, rash, and discoloration, Neuro: Negative for headache, weakness, numbness, tingling, and seizure, Allergy/Immunology: Negative for hives, rash, and allergies, Endocrine: Negative for neck swelling, polydipsia, polyuria, polyphagia, and marked weight changes, Hematologic/Lymphatic: Negative for swollen nodes, abnormal bleeding, and unusual bruising. 16:43 Psych: Positive for depression, suicidal ideation. Exam: 16:43 Constitutional: This is a well developed, well nourished patient who is awake, alert, hiltno and in no acute distress. Head/Face: Normocephalic, atraumatic. Eyes: Pupils equal round and reactive to light, extra-ocular motions intact. Lids and lashes normal. Conjunctiva and sclera are non-icteric and not injected. Cornea within normal limits. Periorbital areas with no swelling, redness, or edema. ENT: Nares patent. No nasal discharge, no septal abnormalities noted. Tympanic membranes are normal and external auditory canals are clear. Oropharynx with no redness, swelling, or masses, exudates, or evidence of obstruction, uvula midline. Mucous membranes moist. Neck: Trachea midline, no thyromegaly or masses palpated, and no cervical lymphadenopathy. Supple, full range of motion without nuchal rigidity, or vertebral point tenderness. No Meningismus. Chest/axilla: Normal chest wall appearance and motion. Nontender with no deformity. No lesions are appreciated. Cardiovascular: Regular rate and rhythm with a normal S1 and S2. No gallops, murmurs, or rubs. Normal PMI, no JVD. No pulse deficits. Respiratory: Lungs have equal breath sounds bilaterally, clear to auscultation and percussion. No rales, rhonchi or wheezes noted. No increased work of breathing, no retractions or nasal flaring. Abdomen/GI: Soft, non-tender, with normal bowel sounds. No distension or tympany. No guarding or rebound. No evidence of tenderness throughout. Back: No spinal tenderness. No costovertebral tenderness. Full range of motion. Skin: Warm, dry with normal turgor. Normal color with no rashes, no lesions, and no evidence of cellulitis. MS/ Extremity: Pulses equal, no cyanosis. Neurovascular intact. Full, normal range of motion. Neuro: Awake and alert, GCS 15, oriented to person, place, time, and situation. Cranial nerves II-XII grossly intact. Motor strength 5/5 in all extremities. Sensory grossly intact. Cerebellar exam normal. Normal gait. 16:43 Psych: Behavior/mood is pleasant, cooperative, Affect is flat, Oriented to person, place, time, Patient has no thoughts/intents to harm self or others. Judgement / Insight is normal. Delusions/hallucinations are not present. Vital Signs: 16:36 BP 128 / 72; Pulse 79; Resp 20; Temp 97.8; Pulse Ox 98% on R/A; la1 18:21 BP 102 / 66; Pulse 75; Resp 17; Pulse Ox 100% on R/A; jb1 22:20 BP 113 / 85; Pulse 93; Resp 20; Temp 98.6; Pulse Ox 99% on R/A; ra1 MDM: 16:34 Patient medically screened. [facility] 16:46 Data reviewed: vital signs, nurses notes, lab test result(s), EKG. [facility] 02/05 16:36 Order name: Acetaminophen; Complete Time: 18:49 [facility] 02/05 16:36 Order name: Basic Metabolic Panel; Complete Time: 18:49 [facility] 02/05 16:36 Order name: CBC with Diff; Complete Time: 18:14 [facility] 02/05 16:36 Order name: ETOH Level; Complete Time: 18:49 [facility] 02/05 16:36 Order name: Hepatic Function; Complete Time: 18:49 [facility] 02/05 16:36 Order name: PT-INR; Complete Time: 18:14 [facility] 02/05 16:36 Order name: Ptt, Activated; Complete Time: 18:14 [facility] 02/05 16:36 Order name: Salicylate; Complete Time: 18:49 [facility] 02/05 16:36 Order name: TSH; Complete Time: 18:49 [facility] 02/05 18:30 Order name: T4 Free; Complete Time: 18:49 [facility] 02/05 16:36 Order name: EKG; Complete Time: 16:37 [facility] 02/05 16:36 Order name: EKG - Nurse/Tech; Complete Time: 17:01 [facility] 02/05 16:36 Order name: IV Saline Lock; Complete Time: 17:19 [facility] 02/05 16:36 Order name: Labs collected and sent; Complete Time: 17:19 [facility] 02/05 18:50 Order name: PO challenge: juice; Complete Time: 19:22 [facility] Administered Medications: 18:20 Drug: NS 0.9% 1000 ml Route: IV; Rate: 1 bolus; Site: right femoral; la1 19:20 Follow up: Response: No adverse reaction; IV Status: Completed infusion; IV Intake: ea 1000ml 19:21 Not Given (Patient Refused): Potassium Effervescent Tablet 25 mEq PO once; dissolve in ea 4 ounces of water or juice 19:22 Drug: Potassium Chloride 20 mEq Route: PO; ea 20:29 Follow up: Response: No adverse reaction ea Disposition: 02/05/18 21:48 Discharged to Home. Impression: Major depressive disorder, recurrent. - Condition is Stable. - Discharge Instructions: Depression and Baby Blues, Major Depressive Disorder. - Medication Reconciliation Form, Thank You Letter, Antibiotic Education, Prescription Opioid Use form. - Follow up: Private Physician; When: 2 - 3 days; Reason: Recheck today's complaints. - Problem is an ongoing problem. - Symptoms have improved. Signatures: Dispatcher [employer] EDKevin Barrera MD MD cha Attema, Lee RN RN la1 Kevin Mckeon PA PA cp Antunez, Elena RN CATHY neil Corrections: (The following items were deleted from the chart) 21:47 18:15 02/05/2018 18:15 Transfer ordered to Psych Facility. Diagnosis is Suicidal cp ideations; Suicide attempt; Major depressive disorder, recurrent. Reason for transfer: Higher level of care. Accepting physician is to psych. Condition is Fair. Problem is new. Symptoms have improved. [facility] 22:26 16:36 Urine Test ordered. [facility] 22:28 21:48 02/05/2018 21:48 Discharged to Home. Impression: Major depressive disorder, ea recurrent. Condition is Stable. Forms are Medication Reconciliation Form, Thank You Letter, Antibiotic Education, Prescription Opioid Use. Follow up: Private Physician; When: 2 - 3 days; Reason: Recheck today's complaints. Problem is an ongoing problem. Symptoms have improved. cp
[2018-02-05] MEDS ORDERED: NA CHLORIDE 0.9% 1,000 ML ONE (18:26)
[2018-02-05] MEDS ORDERED: POTASSIUM 25 MEQ EFFERV TAB ONE (19:19)
[2018-02-05] MEDS ORDERED: POTASSIUM CL SA 10 MEQ TAB PO ONE (19:28)
--- NOTE | 2018-02-05 22:09 | EKG ---
Test Date: 2018-02-05 Test Time: 16:54:09 Area Intelligence Technician: DEANNA MEASUREMENT RESULTS: Intervals: Rate: 77 KS: 138 QRSD: 92 QT: 376 QTc: 425 [place]: P: 52 KS: 138 QRS: 96 T: 32 INTERPRETIVE STATEMENTS: Normal sinus rhythm Rightward axis Cannot rule out Anterior infarct, age undetermined Abnormal ECG No previous ECG available for comparison Electronically Signed On 02-05-18 22:08:46 INTERNATIONAL PROJECT MANAGER by Dung Ramos
[2018-02-06 01:00] VITALS: BP 113/85; TEMP 98.6; O2SAT 99
== END 2018-02-05 22:28 | disposition home or self-care (01) ==
LOC: ER 16:29
DX: F33.9 Major depressive disorder, recurrent, unspecified (principal); F41.9 Anxiety disorder, unspecified
CPT/HCPCS: 36415; 80048; 80076; 80320; 80329; 84439; 84443; 85025; 85610; 85730; 93005; 96360; 99285; J7030

== ENCOUNTER 2019-08-20 15:16 | Emergency (ER) | payer OTHER, SELFPAY ==
--- OUTSIDE RECORDS SUMMARY | 2019-08-20 15:19 | XMS REPORT | Continuity of Care Document ---
:1990 Author Organization [facility] t Address [address] [place] [address] Care Team Providers Name Role Phone Boom LARSON Attending Clinician Boom LARSON Admitting Clinician Problems This patient has no known problems. Allergies, Adverse Reactions, Alerts This patient has no known allergies or adverse reactions. Medications This patient has no known medications. Procedures This patient has no known procedures. Encounters Start End Encounter Admission Attending Care Care Encounter Source Date/Time Date/Time Type Type Clinicians Facility Department ID 2019-03-30 2019-03-31 [facility] [id number] 22:50:00 12:44:00 Encounter Ana Nayana [id number] [place] [id number] [place] [id number] Results This patient has no known results.
[2019-08-20 16:43] LABS: Absolute Lymphocytes (CBC) 3.2 K/uL (0.7-4.9); Basophils % 0.5 % (0-1.3); Hematocrit 42.9 % (36.0-45.0); Lymphocytes % 33.7 % (15.3-44.8); MPV 9.1 fL (7.6-11.3)
[2019-08-20 16:46] LABS: Protime INR 1.07
[2019-08-20 16:48] LABS: Barbiturates NEGATIVE (NEGATIVE); Benzodiazepines POSITIVE (NEGATIVE); Cocaine NEGATIVE (NEGATIVE); METHAMPHETAM NEGATIVE (NEGATIVE); Methadone NEGATIVE (NEGATIVE); Opiates NEGATIVE (NEGATIVE); Phencyclidine NEGATIVE (NEGATIVE); THC Cannibis NEGATIVE (NEGATIVE)
[2019-08-20] MEDS ORDERED: NA CHLORIDE 0.9% 1,000 ML ONE (17:15)
[2019-08-20 17:25] LABS: Urine Blood 2+ (NEG); Urine Glucose NEGATIVE (NEG); Urine Protein NEGATIVE (NEG); Urine Specific Gravity 1.015 (1.005-1.030); Urine pH 5.5 (5.0-7.0)
[2019-08-20 17:30] LABS: ALT/SGPT 27 U/L (12-78); AST/SGOT 14 U/L (15-37); Albumin 4.3 g/dL (3.4-5.0); Alkaline Phosphatase 76 U/L (45-117); BUN Blood Urea Nitrogen 12 mg/dL (7-18); Bicarbonate 26 mmol/L (21-32); Bilirubin Direct 0.1 mg/dL (0-0.2); Bilirubin Total 0.5 mg/dL (0.2-1.0); Glucose Level 88 mg/dL (74-106); Potassium 3.6 mmol/L (3.5-5.1); Protein, Total 8.6 g/dL (6.4-8.2); Sodium Level 138 mmol/L (136-145)
[2019-08-20] MEDS ORDERED: NITROFURAN MACRO 100 MG CAP PO ONE (18:49)
--- NOTE | 2019-08-20 20:34 | EDPHYS ---
Physician Documentation [facility] Name: Viola Menendez Age: 29 yrs Sex: Female : 1990 Arrival Date: 08/20/2019 Time: 15:19 Bed 7 Private MD: ED Physician Albert Weber HPI: 08/19 15:19 This 29 yrs old Female presents to ER via Unassigned with complaints of rn overdose. 15:19 The patient presents to the emergency department after a known overdose, that was rn intentional. Severity of symptoms: At their worst the symptoms were mild in the emergency department the symptoms are unchanged. The patient has not experienced similar symptoms in the past. 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 Reports out of her psychiatric meds because has "been forgetting", denies was suicide attempt, denies homicidal ideas. . 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 - Social history:: Smoking status: Patient denies any tobacco usage or history of. Patient uses street drugs, marijuana. - Family history:: not pertinent. - Hospitalizations: : No recent hospitalization is reported. ROS: 15:19 Constitutional: Negative for fever, chills, and weight loss, Eyes: Negative for injury, rn pain, redness, and discharge, Neck: Negative for injury, pain, and swelling, Cardiovascular: Negative for chest pain, palpitations, and edema, Respiratory: Negative for shortness of breath, cough, wheezing, and pleuritic chest pain, Abdomen/GI: Negative for abdominal pain, nausea, vomiting, diarrhea, and constipation, Back: Negative for injury and pain, MS/Extremity: Negative for injury and deformity, Skin: Negative for injury, rash, and discoloration, Neuro: Negative for headache, weakness, numbness, tingling, and seizure, Psych: Negative for suicide ideation, homicidal ideation, and hallucinations. Exam: 15:19 Constitutional: This is a well developed, well nourished patient who is awake, alert, rn and in no acute distress. Sitting upright on her own power, tearful Head/Face: Normocephalic, atraumatic. Eyes: Pupils equal round and reactive to light, extra-ocular motions intact. No nystagmus Cardiovascular: Regular rate and rhythm. No pulse deficits. Respiratory: No increased work of breathing, no retractions or nasal flaring. Abdomen/GI: Soft, non-tender MS/ Extremity: Pulses equal, no cyanosis. Neuro: Awake and alert, GCS 15, oriented to person, place, time, and situation. Cranial nerves II-XII grossly intact. Motor strength 5/5 in all extremities. Sensory grossly intact. 15:40 ECG was reviewed by the Attending Physician. rn Vital Signs: 15:23 BP 108 / 78; Pulse 90; Resp 15 S; Temp 98.3(TE); Pulse Ox 100% on R/A; Weight 81.65 kg jl7 (R); Height 5 ft. 0 in. (152.40 cm) (R); Pain 0/10; 16:00 BP 104 / 70; Pulse 73; Resp 16; Pulse Ox 100% ; Pain 0/10; jl7 15:23 Body Mass Index 35.15 (81.65 kg, 152.40 cm) jl7 MDM: 15:19 Patient medically screened. rn 17:59 Differential diagnosis:. Data reviewed: vital signs, nurses notes, lab test result(s), rn EKG. ED course: Sister here, states has had suicidal thoughts before, is concerned for her mental health, is requesting mental health evaluation, has had psychiatric inpatient hospitalizations before. After tylenol level returns, can be medically cleared for mental heatlh evaluation/transfer. . 18:20 ED course: Repeat tylenol level below toxic/treatment threshold, now medically cleared, rn awaiting [facility] evaluation and recommendation.. 19:10 ED course: Pt signed out to Dr. Weber pending HEMANTH and mental health evaluation. . rn 19:52 ED course: patient is stable, vs wnl, pending [facility] evaluation. ED course: has no ma2 symptoms at this time . 21:28 ED course: police evaluated her and states she is not suicidal and he is unabele to put ma2 HEMANTH on her. she left AMA. 08/19 15:19 Order name: Acetaminophen; Complete Time: 17:08/19 15:19 Order name: Basic Metabolic Panel; Complete Time: 17:08/19 15:19 Order name: CBC with Diff; Complete Time: 17: 08/19 15:19 Order name: ETOH Level; Complete Time: 17: 08/19 15:19 Order name: Hepatic Function; Complete Time: 17:08/19 15:19 Order name: PT-INR; Complete Time: 17:08/19 15:19 Order name: Ptt, Activated; Complete Time: :08/19 15:19 Order name: Salicylate; Complete Time: 17: 08/19 15:19 Order name: Urine Drug Screen; Complete Time: 17: 08/19 16:34 Order name: Urine Dipstick--Ancillary (enter results); Complete Time: 17: 08/19 16:34 Order name: Urine --Ancillary (enter results); Complete Time: 17: 08/19 17:38 Order name: Acetaminophen: 1820 draw; Complete Time: 18:19 08/19 15:19 Order name: Urine Test (obtain specimen); Complete Time: 16:08/19 15:19 Order name: EKG; Complete Time: 15:20 08/19 15:19 Order name: EKG - Nurse/Tech; Complete Time: 15:41 08/19 15:19 Order name: IV Saline Lock; Complete Time: 17:08/19 15:19 Order name: Labs collected and sent; Complete Time: 17:08/19 15:19 Order name: Urine Dipstick-Ancillary (obtain specimen); Complete Time: 17: rn EC:40 Rate is 75 beats/min. Rhythm is regular. QRS Warne is Normal. WI interval is normal. QRS rn interval is normal. QT interval is normal. No Q waves. T waves are Normal. No ST changes noted. Clinical impression: NSR w/ Non-specific ST/T Changes. Interpreted by me. Reviewed by me. Administered Medications: 17:10 Drug: NS 0.9% 1000 ml Route: IV; Rate: 1000 ml; Site: left antecubital; 7 18:20 Follow up: Response: No adverse reaction; IV Status: Completed infusion; IV Intake: jl7 1000ml 18:30 Drug: Macrobid 100 mg Route: PO; jl7 Disposition: 08/20/19 20:33 Patient has left against medical advice. - Patients states they are going to Home. - Condition is Stable. Signatures: Dispatcher [employer] EDDylan Sanchez MD MD rn Leal, Jahala, RN RN jl7 Kell Brandon RN RN ea Alzahri, Mohammad, MD MD ma2 Corrections: (The following items were deleted from the chart) 20:34 20:33 08/20/2019 20:33 Patients has left against medical advice. Patient states they ea are going to Home. Condition is Stable. rashaad
--- NOTE | 2019-08-20 20:34 | ER ---
Nurse's Notes [facility] Name: Viola Menendez Age: 29 yrs Sex: Female : 1990 Arrival Date: 08/20/2019 Time: 15:19 Bed 7 Private MD: Diagnosis: Presentation: 08/19 15:23 Chief complaint: EMS states: Pt ingested 4 Tylenol, 4 Advil, 4 Aleve, 4 Aspirin, and jl7 half a Xanax about 1 hour prior to arrival. 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 Coronavirus screen: Proceed with normal triage. Patient denies a cough. Patient denies shortness of breath or difficulty breathing. Patient denies measured and/or subjective temperature greater than 100.4F prior to today's visit. Patient denies travel on a cruise ship or to a country the [facility] currently lists as an affected area. Patient denies contact with known and/or suspected case of COVID-19. Ebola Screen: No symptoms or risks identified at this time. Initial Sepsis Screen: Does the patient meet any 2 criteria? No. Patient's initial sepsis screen is negative. Does the patient have a suspected source of infection? No. Patient's initial sepsis screen is negative. Risk Assessment: Do you want to hurt yourself or someone else? Patient reports no desire to harm self or others. Onset of symptoms was August 20, 2019. Care prior to arrival: IV initiated. 18 GA, in the left antecubital area. Transition of care: patient was not received from another setting of care. 15:23 Method Of Arrival: EMS: [facility] 15:23 Acuity: SAVANNAH 2 jl7 Triage Assessment: 15:29 General: Appears in no apparent distress. uncomfortable, Behavior is cooperative, jl7 agitated, quiet. Pain: Denies pain. Neuro: Level of Consciousness is awake, alert, obeys commands, Oriented to person, place, time, situation. Cardiovascular: Patient's skin is warm and dry. Respiratory: Airway is patent Respiratory effort is even, unlabored, Respiratory pattern is regular, symmetrical. GI: Patient currently denies diarrhea, nausea, vomiting. : Denies burning with urination. Derm: Skin is pink, warm \\T\\ dry. Musculoskeletal: No signs and/or symptoms reported regarding the musculoskeletal system. 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 - Social history:: Smoking status: Patient denies any tobacco usage or history of. Patient uses street drugs, marijuana. - Family history:: not pertinent. - Hospitalizations: : No recent hospitalization is reported. Screenin:31 Abuse screen: Denies threats or abuse. Denies injuries from another. Nutritional jl7 screening: No deficits noted. Tuberculosis screening: No symptoms or risk factors identified. Fall Risk IV access (20 points). Total Sutton Fall Scale indicates No Risk (0-24 pts). Assessment: 15:31 General: See triage assessment. [facility] 16:15 Reassessment: Pt's family at bedside. [facility] 16:30 Reassessment: pt refusing vital sign equipment. [facility] 18:58 Reassessment: Pt states "I'm leaving so tell the doctor to discharge me." Pt IV noted jl7 to be dc'd by pt, no bleeding noted. Dr. Molina reports pt will have a psych eval prior to discharge due to pt's step-sister reporting pt has had suicide attempts in the past. Update pt and pt states "I am not staying. I am leaving. I have never attempted suicide." Requested security at bedside to place pt in paper scrubs, pt refuses and leaves room. [place] CABRERA notified. 19:07 Reassessment: Spoke to Deborah at [facility], will call her back once pt returns to ED [facility] room. 19:14 Reassessment: [place] PD Officer Chris reports the pt is not saying any of the words that [facility] would require him to make her stay. They are contacting the mental health deputy to see how long before he gets here. The pt's family member is outside with her and if she takes off with her they have no real reason to physically keep her here. 19:45 Reassessment: Pt brought back to room by PD. Pt speaking with [facility]. ea 20:00 Reassessment: Mental health officer at facility reports pt does not meet criteria for ea an HEMANTH. 20:26 Reassessment: Patient and/or family updated on plan of care and expected duration. Pain ea level reassessed. Patient is alert, oriented x 3, equal unlabored respirations, skin warm/dry/pink. Pt refused vitals. Pt states "I have to go right now!, I am not waiting anymore" Pt verbalized the understanding of leaving AMA. Pt left ED accompanied by sister. Pt tolerating well. Vital Signs: 15:23 BP 108 / 78; Pulse 90; Resp 15 S; Temp 98.3(TE); Pulse Ox 100% on R/A; Weight 81.65 kg jl7 (R); Height 5 ft. 0 in. (152.40 cm) (R); Pain 0/10; 16:00 BP 104 / 70; Pulse 73; Resp 16; Pulse Ox 100% ; Pain 0/10; jl7 15:23 Body Mass Index 35.15 (81.65 kg, 152.40 cm) jl7 ED Course: 15:19 Patient arrived in ED. rn 15:19 Dylan Molina MD is Attending Physician. rn 15:23 Shankar Juarez RN is Primary Nurse. jl7 15:27 Triage completed. jl7 15:29 Arm band placed on right wrist. jl7 15:30 Maintain EMS IV. Dressing intact. Good blood return noted. Site clean \\T\\ dry. Gauge \\T\\ jl 7 site: 18 left AC. 15:31 Patient has correct armband on for positive identification. Placed in gown. Bed in low jl7 position. Call light in reach. Side rails up X 1. sports physician on. Pulse ox on. NIBP on. Warm blanket given. 15:41 EKG done, by ED staff, reviewed by yDlan Molina MD. 3 16:00 Initial lab(s) drawn, by al, sent to lab. Urine collected: clean catch specimen, cloudy.jl7 19:14 IV discontinued, intact, bleeding controlled, No redness/swelling at site. jl7 19:52 Attending Physician role handed off by Dylan Molina MD ma2 19:52 Albert Weber MD is Attending Physician. ma2 20:30 No provider procedures requiring assistance completed. ea Administered Medications: 17:10 Drug: NS 0.9% 1000 ml Route: IV; Rate: 1000 ml; Site: left antecubital; jl7 18:20 Follow up: Response: No adverse reaction; IV Status: Completed infusion; IV Intake: jl7 1000ml 18:30 Drug: Macrobid 100 mg Route: PO; jl7 Intake: 18:20 IV: 1000ml; Total: 1000ml. [facility] Outcome: 20:30 AMA Left before signing form. ea 20:34 Patient left the ED. ea Signatures: Dylan Molina MD MD rn Leal, Jahala, RN RN [facility] Mariam Rao [facility] Kell Brandon RN RN ea Alzahri, Mohammad, MD MD [facility]
[2019-08-20 20:55] VITALS: TEMP 98.3; O2SAT 100
[2019-08-20 20:57] VITALS: BP 104/70
--- NOTE | 2019-08-21 10:19 | EKG ---
Test Date: 2019-08-20 Test Time: 15:36:45 Telecommunications Officer: NOEL MEASUREMENT RESULTS: Intervals: Rate: 75 HI: 146 QRSD: 92 QT: 364 QTc: 406 [place]: P: 40 HI: 146 QRS: 34 T: 14 INTERPRETIVE STATEMENTS: Normal sinus rhythm Cannot rule out Anterior infarct, age undetermined Abnormal ECG Compared to ECG 02/05/2018 16:54:09 Right-axis deviation no longer present Myocardial infarct finding still present Electronically Signed On 08-21-19 10:18:54 CDT by Calvin Patel
== END 2019-08-20 20:34 | disposition left against medical advice (07) ==
LOC: ER 15:16
DX: T39.91XA Poisoning by unspecified nonopioid analgesic, antipyretic and antirheumatic, accidental (unintentional), initial encounter (principal); F31.9 Bipolar disorder, unspecified
CPT/HCPCS: 36415; 80048; 80076; 80307; 80320; 80329; 81003; 81025; 85025; 85610; 85730; 93005; 96360; 99284; J7030

== ENCOUNTER 2019-10-13 23:54 | Emergency (ER) | payer SELFPAY ==
--- OUTSIDE RECORDS SUMMARY | 2019-10-13 23:56 | XMS REPORT | Continuity of Care Document ---
:1990 Author Organization [facility] t Address [address] [place] [address] Care Team Providers Name Role Phone Boom [...] Type Clinicians Facility Department ID 2019-03-30 2019-03-31 [facility] [id number] 22:50:00 12:44:00 Encounter Ana Nayana [id number] Ceas[place] [id number] [place] [phone] [id number] Results This patient has no known results.
--- NOTE | 2019-10-14 00:34 | ER ---
Nurse's Notes [facility] Name: Viola Menendez Age: 29 yrs Sex: Female : 1990 Arrival Date: 10/13/2019 Time: 23:56 Bed 13 Private MD: Diagnosis: Unspecified abdominal pain Presentation: 10/13 00:15 Chief complaint: Patient states: lower abdominal pain that radiates to the back. Coronavirus screen: Client denies travel out of the [place] in the last 14 days. At this time, the client does not indicate any symptoms associated with coronavirus-19. Ebola Screen: Patient negative for fever greater than or equal to 101.5 degrees Fahrenheit, and additional compatible Ebola Virus Disease symptoms Patient denies exposure to infectious person. Initial Sepsis Screen: Does the patient meet any 2 criteria? No. Patient's initial sepsis screen is negative. Does the patient have a suspected source of infection? Yes: Acute abdominal pain. Risk Assessment: Do you want to hurt yourself or someone else? Patient reports no desire to harm self or others. Onset of symptoms was October 14, 2019. 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 - Social history:: Smoking status: Patient/guardian denies using. Screenin:15 Abuse screen: Denies threats or abuse. Denies injuries from another. Nutritional screening: No deficits noted. Tuberculosis screening: No symptoms or risk factors identified. Fall Risk None identified. Assessment: 00:20 General: Appears in no apparent distress. Behavior is calm, cooperative, appropriate for age. Pain: Complains of pain in right lower quadrant and left lower quadrant Pain radiates to back Pain currently is 1 out of 10 on a pain scale. Pain began suddenly. Neuro: Level of Consciousness is awake, alert, obeys commands, Oriented to person, place, time, situation, Appropriate for age. Cardiovascular: Heart tones S1 S2. Respiratory: Airway is patent Respiratory effort is even, unlabored, Respiratory pattern is regular, symmetrical, Breath sounds are clear bilaterally. GI: Abdomen is flat, non-distended, Bowel sounds present X 4 quads. Abd is soft and non tender X 4 quads. Reports lower abdominal pain. : No signs and/or symptoms were reported regarding the genitourinary system. EENT: No signs and/or symptoms were reported regarding the EENT system. Derm: Skin is intact, is healthy with good turgor, Skin is pink, warm \T\ dry. normal. Musculoskeletal: Circulation, motion, and sensation intact. Vital Signs: 00:21 BP 102 / 70; Pulse 76; Temp 98.0; Pulse Ox 96% on R/A; Weight 79.38 kg; Height 5 ft. 0 tt3 in. (152.40 cm); Pain 7/10; 00:21 Body Mass Index 34.18 (79.38 kg, 152.40 cm) tt3 ED Course: 10/12 23:56 Patient arrived in ED. [facility] 10/13 00:18 Jeffery Suarez PA is PHCP. serafin 00:18 Arnaldo Cabrera MD is Attending Physician. [facility] 00:20 Arm band placed on right wrist. 00:20 Patient has correct armband on for positive identification. Bed in low position. Call light in reach. Side rails up X 1. Pulse ox on. NIBP on. 00:31 Cassandra Palomares is Primary Nurse. 00:31 Triage completed. 00:33 No provider procedures requiring assistance completed. Patient did not have IV access during this emergency room visit. Administered Medications: No medications were administered Outcome: 00:47 AMA AMA form signed 00:47 Condition: stable 00:47 Instructed on discharge instructions. 00:47 Patient left the ED. Signatures: Jeffery Suarez PA PA jmm Habalo, Winsy Joelle Voss bp1 Tab, Usama tt3
--- NOTE | 2019-10-14 00:34 | EDPHYS ---
Physician Documentation [facility] Name: Viola Menendez Age: 29 yrs Sex: Female : 1990 Arrival Date: 10/13/2019 Time: 23:56 Bed 13 Private MD: ED Physician Arnaldo Cabrera HPI: 10/13 00:30 This 29 yrs old Female presents to ER via Unassigned with complaints of jmm Abdominal Pain, Back Pain, Low Back Pain. 00:30 The patient presents with abdominal pain. Onset: The symptoms/episode began/occurred jmm acutely, 2 hour(s) ago. The symptoms radiate to the right flank. Associated signs and symptoms: Pertinent negatives: fever, vomiting. This is a 29 year old female with a history of ovarian cysts that presents to the ED with complaints of right lower abdominal pain. Pain was acute onset to the right flank region. patient denies vomiting or diarrhea. Patient states pain felt similar to previous ruptured cysts but worse. Patient states the pain has now partially resolved. . 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 - Social history:: Smoking status: Patient/guardian denies using. ROS: 00:30 Constitutional: Negative for fever, chills, and weight loss, Cardiovascular: Negative jmm for chest pain, palpitations, and edema, Respiratory: Negative for shortness of breath, cough, wheezing, and pleuritic chest pain. 00:30 Abdomen/GI: Positive for abdominal pain. 00:30 All other systems are negative. Exam: 00:30 Constitutional: This is a well developed, well nourished patient who is awake, alert, jmm and in no acute distress. Head/Face: atraumatic. Eyes: EOMI, no conjunctival erythema appreciated ENT: Moist Mucus Membranes Neck: Trachea midline, Supple Chest/axilla: Normal chest wall appearance and motion. Cardiovascular: Regular rate and rhythm. No edema appreciated Respiratory: Normal respirations, no respiratory distress appreciated 00:30 Back: Normal ROM Skin: General appearance color normal MS/ Extremity: Moves all extremities, no obvious deformities appreciated, no edema noted to the lower extremities Neuro: Awake and alert, normal gait Psych: Behavior is normal, Mood is normal, Patient is cooperative and pleasant 00:30 Abdomen/GI: Inspection: abdomen appears normal, Bowel sounds: normal, Palpation: nontender, mild abdominal tenderness, in the right lower quadrant. Vital Signs: 00:21 BP 102 / 70; Pulse 76; Temp 98.0; Pulse Ox 96% on R/A; Weight 79.38 kg; Height 5 ft. 0 tt3 in. (152.40 cm); Pain 7/10; 00:21 Body Mass Index 34.18 (79.38 kg, 152.40 cm) tt3 MDM: 00:22 Patient medically screened. serafin 00:32 Data reviewed: vital signs, nurses notes. Counseling: I had a detailed discussion with serafin the patient and/or guardian regarding:. Refusal of service: The patient/guardian displays adequate decision making capability and despite a detailed discussion of alternatives, benefits, risks, and consequences refuses: CT Scan, all lab tests. ED course: Patient advised of the need for imaging to rule out an acute intraabdominal process. Patient understood but will signs out AMA. . Administered Medications: No medications were administered Disposition: 05:55 Co-signature as Attending Physician, Arnaldo Cabrera MD. mh7 Disposition: 10/14/19 00:33 Patient has left against medical advice. Impression: Unspecified abdominal pain. - Patients states they are going to Home. - Condition is Stable. Follow up: Private Physician; When: 2 - 3 days; Reason: Recheck today's complaints, Continuance of care, Re-evaluation by your physician. - Problem is an acute exacerbation. - Symptoms have improved. Signatures: Jeffery Suarez PA PA jmm Habalo, Winsy wh Holmes, Maurice, MD MD mh7 Corrections: (The following items were deleted from the chart) 00:47 00:33 10/14/2019 00:33 Patients has left against medical advice. Impression: wh Unspecified abdominal pain. Patient states they are going to Home. Condition is Stable. Follow up: Private Physician; When: 2 - 3 days; Reason: Recheck today's complaints, Continuance of care, Re-evaluation by your physician. Problem is an acute exacerbation. Symptoms have improved. serafin
[2019-10-14 01:26] VITALS: BP 102/70; TEMP 98; O2SAT 96
== END 2019-10-14 00:47 | disposition left against medical advice (07) ==
LOC: ER 23:54
DX: R10.31 Right lower quadrant pain (principal); F31.9 Bipolar disorder, unspecified
CPT/HCPCS: 99282

== ENCOUNTER 2020-01-07 20:21 | Emergency (ER) | payer SELFPAY ==
--- OUTSIDE RECORDS SUMMARY | 2020-01-07 20:23 | XMS REPORT | Continuity of Care Document ---
:1990 Author Organization [facility] t Address [address] [place] [address] Care Team Providers Name Role Phone Boom [...] Type Clinicians Facility Department ID 2019-03-30 2019-03-31 [facility] [id number] 22:50:00 12:44:00 Encounter Ana Nayana [id number] [place] [id number] [place] [phone] [id number] Results This patient has no known results.
[2020-01-07] MEDS ORDERED: ACETAMINOPHEN 325 MG TABLET ONE (21:01)
[2020-01-07] MEDS ORDERED: IBUPROFEN 400 MG TAB ONE (21:02)
--- NOTE | 2020-01-07 21:10 | RAD REPORT ---
EXAM DESCRIPTION: RAD -Hand Left 3 View - 01/07/2020 8:56 pm CLINICAL HISTORY: Left hand pain status post injury FINDINGS: Mildly to moderately displaced oblique fracture mid to distal fifth metacarpal. No dislocation
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
[2020-01-07] MEDS ORDERED: HYDROCODONE/APAP 7.5/325 MG TAB ONE (21:31)
[2020-01-08 01:51] VITALS: BP 114/63; TEMP 98.2; O2SAT 97
== END 2020-01-07 21:49 | disposition home or self-care (01) ==
LOC: ER 20:21
PROC: 2W3DX1Z Immobilization of Left Lower Arm using Splint (ICD-10-PCS; principal; 2020-01-07)
DX: S62.327A Displaced fracture of shaft of fifth metacarpal bone, left hand, initial encounter for closed fracture (principal); V89.2XXA Person injured in unspecified motor-vehicle accident, traffic, initial encounter; F31.9 Bipolar disorder, unspecified; Z87.891 Personal history of nicotine dependence
CPT/HCPCS: 99284

== ENCOUNTER 2021-02-18 20:07 | Emergency (ER) | payer SELFPAY ==
--- OUTSIDE RECORDS SUMMARY | 2021-02-18 20:11 | XMS REPORT | Continuity of Care Document ---
:1990 Author Organization [facility] t Address [address] [place] [address] Care Team Providers Name Role Phone Boom [...] Type Clinicians Facility Department ID 2019-03-30 2019[facility]03-31 [facility] [id number] 22:50:00 12:44:00 Encounter Ana Nayana [id number] [place] [id number] [place] [id number] [id number] Results This patient has no known results.
[2021-02-18 22:22] LABS: SARS-COV-2 RT PCR POSITIVE (NEGATIVE)
--- NOTE | 2021-02-18 23:17 | ER ---
Nurse's Notes [facility] Name: Viola Menendez Age: 30 yrs Sex: Female : 1990 Arrival Date: 02/18/2021 Time: 20:10 Bed Treatment Private MD: Diagnosis: Positive Covid 19 Presentation: 02/18 20:57 Chief complaint: Patient states: Fever, sore throat, cough, body aches, MUSTAFA since last ll1 night. Exposed to covid. Coronavirus screen: Vaccine status: Patient reports being unvaccinated. Client denies travel out of the [place] in the last 14 days. congestion, cough unrelated to allergies, fatigue, fever, headache, muscle pain, Client presents with at least one sign or symptom that may indicate coronavirus-19. Standard/surgical mask placed on the client. Ebola Screen: Patient denies travel to an Ebola-affected area in the 21 days before illness onset. Initial Sepsis Screen: Does the patient meet any 2 criteria? No. Patient's initial sepsis screen is negative. Does the patient have a suspected source of infection? Yes: Productive cough/pneumonia. Risk Assessment: Do you want to hurt yourself or someone else? Patient reports no desire to harm self or others. Onset of symptoms was February 17, 2021. 20:57 Method Of Arrival: Ambulatory ll1 20:57 Acuity: SAVANNAH 4 ll1 Triage Assessment: 23:25 General: Appears ill, Behavior is calm, cooperative. 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 Flu vaccine is not up to date. - Social history:: Smoking status: Patient denies any tobacco usage or history of. Screenin:23 Abuse screen: none. Nutritional screening: No deficits noted. Tuberculosis screening: sv1 No symptoms or risk factors identified. Fall Risk None identified. Assessment: 23:24 Pain: Denies pain. Respiratory: Airway. Respiratory: No deficits noted. Respiratory sv1 effort is unlabored. EENT: Throat is reddened. 23:25 Respiratory: Breath sounds are clear bilaterally. sv1 Vital Signs: 20:57 BP 115 / 83; Pulse 90; Resp 18; Temp 99.3; Pulse Ox 96% ; Weight 92.99 kg; Height 5 ft. ll1 0 in. (152.40 cm); Pain 4/10; 20:57 Body Mass Index 40.04 (92.99 kg, 152.40 cm) ll1 ED Course: 20:10 Patient arrived in ED. mr 20:57 Arm band placed on. ll1 20:59 Triage completed. ll1 23:03 Manish Wilson MD is Attending Physician. pkl 23:23 Patient has correct armband on for positive identification. Call light in reach. sv1 23:23 Patient did not have IV access during this emergency room visit. sv1 23:24 No provider procedures requiring assistance completed. sv1 Administered Medications: No medications were administered Outcome: 23:16 Discharge ordered by . pkl 23:23 Discharged to home sv1 23:23 Condition: good 23:23 Discharge instructions given to patient. 23:26 Patient left the ED. sv1 Signatures: Manish Wilson MD MD [facility] Susana Morales Duy Christina, RN RN ll1 David Caldwell RN RN sv1 Corrections: (The following items were deleted from the chart) 20:57 20:57 PSHx: Coronary Angioplasty; ll1 ll1
--- NOTE | 2021-02-18 23:17 | EDPHYS ---
Physician Documentation [facility] Name: Viola Menendez Age: 30 yrs Sex: Female : 1990 Arrival Date: 02/18/2021 Time: 20:10 Bed Treatment Private MD: ED Physician Manish Wilson HPI: 02/18 23:10 This 30 yrs old Female presents to ER via Ambulatory with complaints of Fever, Sore pkl Throat, Cough. 23:10 The patient or guardian reports cough, described as mild, with no sputum. Onset: The pkl symptoms/episode began/occurred yesterday. Associated signs and symptoms: Pertinent positives: sore throat, body aches and headache. Patient exposed to sister who is Covid 19 positive. RN CORRECTIONS: 23:26 LMP N/A - sv1 Historical: - Allergies: 20:57 No Known Drug Allergies; ll1 - PMHx: 20:57 Anxiety; Bipolar disorder; Depression; PCOS; ll1 - PSHx: 20:57 section; ll1 - Immunization history:: Client reports having NOT received the Covid vaccine. Flu vaccine is not up to date. - Social history:: Smoking status: Patient denies any tobacco usage or history of. ROS: 23:10 Eyes: Negative for injury, pain, redness, and discharge. pkl 23:10 ENT: Positive for sore throat. 23:10 Neck: Negative for stiffness. 23:10 Cardiovascular: Negative for chest pain. 23:10 Respiratory: Positive for cough, Negative for shortness of breath. 23:10 Abdomen/GI: Negative for abdominal pain, nausea, vomiting, and diarrhea. 23:10 Back: Negative for acute changes. 23:10 : Negative for urinary symptoms. 23:10 MS/extremity: Negative for acute changes. 23:10 Skin: Negative for rash. 23:10 Neuro: Negative for altered mental status, loss of consciousness. Exam: 23:10 Head/Face: Normocephalic, atraumatic. Eyes: Pupils equal round and reactive to light, pkl extra-ocular motions intact. Lids and lashes normal. Conjunctiva and sclera are non-icteric and not injected. Cornea within normal limits. Periorbital areas with no swelling, redness, or edema. ENT: Nares patent. No nasal discharge, no septal abnormalities noted. Tympanic membranes are normal and external auditory canals are clear. Oropharynx with no redness, swelling, or masses, exudates, or evidence of obstruction, uvula midline. Mucous membranes moist. Neck: Trachea midline, no thyromegaly or masses palpated, and no cervical lymphadenopathy. Supple, full range of motion without nuchal rigidity, or vertebral point tenderness. No Meningismus. Chest/axilla: Normal chest wall appearance and motion. Nontender with no deformity. No lesions are appreciated. Cardiovascular: Regular rate and rhythm with a normal S1 and S2. No gallops, murmurs, or rubs. Normal PMI, no JVD. No pulse deficits. Respiratory: Lungs have equal breath sounds bilaterally, clear to auscultation and percussion. No rales, rhonchi or wheezes noted. No increased work of breathing, no retractions or nasal flaring. Abdomen/GI: Soft, non-tender, with normal bowel sounds. No distension or tympany. No guarding or rebound. No evidence of tenderness throughout. Back: No spinal tenderness. No costovertebral tenderness. Full range of motion. Skin: Warm, dry with normal turgor. Normal color with no rashes, no lesions, and no evidence of cellulitis. MS/ Extremity: Pulses equal, no cyanosis. Neurovascular intact. Full, normal range of motion. Neuro: Awake and alert, GCS 15, oriented to person, place, time, and situation. Cranial nerves II-XII grossly intact. Motor strength 5/5 in all extremities. Sensory grossly intact. Cerebellar exam normal. Normal gait. Vital Signs: 20:57 BP 115 / 83; Pulse 90; Resp 18; Temp 99.3; Pulse Ox 96% ; Weight 92.99 kg; Height 5 ft. ll1 0 in. (152.40 cm); Pain 4/10; 20:57 Body Mass Index 40.04 (92.99 kg, 152.40 cm) ll1 MDM: 23:03 Patient medically screened. pkl 23:10 Data reviewed: lab test result(s). ED course: Discussed lab results with patient. pkl Advised to quarantine for 10 days. Follow up with PCP in 2 to 3 days. To return if necessary. Patient understood instructios.. 02/18 21:10 Order name: COVID-19/FLU A+B (Document "Date of Onset" if Symptomatic); Complete Time: kb 23:04 Administered Medications: No medications were administered Disposition Summary: 02/18/21 23:16 Discharge Ordered Location: Home pkl Problem: new pkl Symptoms: are unchanged pkl Condition: Stable pkl Diagnosis - Positive Covid 19 pkl Followup: pkl - With: Private Physician - When: 2 - 3 days - Reason: Re-evaluation by your physician Discharge Instructions: - Discharge Summary Sheet pkl Forms: - Medication Reconciliation Form pkl - Thank You Letter pkl - Antibiotic Education pkl - Prescription Opioid Use pkl Prescriptions: - Zithromax Z-Milan 250 mg Oral Tablet - take 1 tablet by ORAL route as directed for 5 days Day 1 - take two (2) tablets pkl one time. Day 2, 3, 4 , 5 take one (1) tablet once daily.; 6 tablet; Refills: 0, Product Selection Permitted Signatures: Dispatcher [employer] Manish Tellez MD MD pkl Duy Christina RN RN ll1 Corrections: (The following items were deleted from the chart) 20:57 20:57 PSHx: Coronary Angioplasty; ll1 ll1
[2021-02-18 23:30] VITALS: BP 115/83; TEMP 99.3; O2SAT 96
== END 2021-02-18 23:26 | disposition home or self-care (01) ==
LOC: ER 20:07
DX: U07.1 COVID-19 (principal)
CPT/HCPCS: 0240U; 99281

== ENCOUNTER 2021-05-13 23:02 | Emergency (ER) | payer OTHER ==
[2021-05-13 23:35] LABS: Urine Blood Negative (Negative); Urine Glucose Negative (Negative); Urine Protein Negative (Negative); Urine Specific Gravity <=1.005 (1.005-1.030); Urine pH 6.5 (5.0-7.0)
[2021-05-14 00:12] LABS: Absolute Lymphocytes (CBC) 3.8 K/uL (0.7-4.9); Hematocrit 36.8 % (36.0-45.0); Lymphocytes % 39.3 % (15.3-44.8); MPV 8.3 fL (7.6-11.3); RBC Red Blood Cell Count 3.98 M/uL (3.86-4.86)
[2021-05-14 00:19] LABS: Barbiturates NEGATIVE (NEGATIVE); Benzodiazepines NEGATIVE (NEGATIVE); Cocaine NEGATIVE (NEGATIVE); METHAMPHETAM NEGATIVE (NEGATIVE); Methadone NEGATIVE (NEGATIVE); Opiates NEGATIVE (NEGATIVE); Phencyclidine NEGATIVE (NEGATIVE); THC Cannibis POSITIVE (NEGATIVE)
[2021-05-14 00:59] LABS: ALT/SGPT 34 U/L (12-78); AST/SGOT 14 U/L (15-37); Albumin 3.8 g/dL (3.4-5.0); Alkaline Phosphatase 76 U/L (45-117); BUN Blood Urea Nitrogen 12 mg/dL (7-18); Bicarbonate 25 mmol/L (21-32); Bilirubin Direct 0.1 mg/dL (0-0.2); Bilirubin Total 0.3 mg/dL (0.2-1.0); Glucose Level 96 mg/dL (74-106); Magnesium 2.1 mg/dL (1.8-2.4); Potassium 3.5 mmol/L (3.5-5.1); Protein, Total 8.2 g/dL (6.4-8.2); Sodium Level 140 mmol/L (136-145)
[2021-05-14 01:04] LABS: SARS-COV-2 RT PCR NEGATIVE (NEGATIVE)
--- OUTSIDE RECORDS SUMMARY | 2021-05-14 01:18 | XMS REPORT | Continuity of Care Document ---
:1990 Author Organization [facility] t Address [address] [place] [address] Care Team Providers Name Role Phone Boom [...] Type Clinicians Facility Department ID 2019-03-30 2019-03-31 [facility] [id number] 22:50:00 12:44:00 Encounter Ana Nayana [id number] [place] [id number] [place] [id number] [id number] Results This patient has no known results.
--- NOTE | 2021-05-14 03:33 | ER ---
Nurse's Notes [facility] Name: Viola Menendez Age: 30 yrs Sex: Female : 1990 Arrival Date: 05/13/2021 Time: 23:05 Bed 13 Private MD: Diagnosis: Abuse of other non-psychoactive substances-overdose, non toxic Presentation: 05/13 23:15 Acuity: SAVANNAH 2 lp1 23:15 Chief complaint: Spouse and/or significant other states: Boyfriend reports patient lp1 states she need to come to ER due to taking unknown amount of Tramadol and drinking Vodka tonight; Patient awake, able to respond to questions; Denies self harm attempt, states "I was just stressed out". 23:15 Coronavirus screen: At this time, the client does not indicate any symptoms associated lp1 with coronavirus-19. Ebola Screen: No symptoms or risks identified at this time. Initial Sepsis Screen: Does the patient meet any 2 criteria? No. Patient's initial sepsis screen is negative. Does the patient have a suspected source of infection? No. Patient's initial sepsis screen is negative. Risk Assessment: Do you want to hurt yourself or someone else? Patient reports no desire to harm self or others. Onset of symptoms was May 13, 2021. 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 - Social history:: Smoking status: Patient denies any tobacco usage or history of. Patient uses street drugs, marijuana. Screenin:49 Abuse screen: Denies threats or abuse. Denies injuries from another. Nutritional lp1 screening: No deficits noted. Tuberculosis screening: No symptoms or risk factors identified. 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 23:53 General: Appears in no apparent distress. comfortable, Behavior is cooperative. Pain: ld1 Denies pain. Neuro: Level of Consciousness is awake, alert, obeys commands, Oriented to person, place, time, situation. Cardiovascular: Capillary refill < 3 seconds Patient's skin is warm and dry. Rhythm is regular. Respiratory: Airway is patent Respiratory effort is even, unlabored. GI: Abdomen is round non-distended. : No signs and/or symptoms were reported regarding the genitourinary system. EENT: No signs and/or symptoms were reported regarding the EENT system. Derm: No signs and/or symptoms reported regarding the dermatologic system. Musculoskeletal: No signs and/or symptoms reported regarding the musculoskeletal system. 23:56 Reassessment: Called Poison Control spoke with Lisa from [place] poison control, she vc1 states patient is at risk for CELL CHANGER and Respiratory depression, recommends 3-6 hours of observation, cardiac monitoring, seizure precautions. . 05/14 00:00 Reassessment: Contacted Poison Control and spoke with CATHY Rajan; Discussed monitoring lp1 for respiratory depression, hypotension, agitation, seizures, QT Prolongation, magnesium, potassium, calcium; estimated for 10 hr observation. 01:00 Reassessment: Patient and/or family updated on plan of care and expected duration. Pain vc1 level reassessed. Patient states symptoms have improved. 02:00 Reassessment: Patient and/or family updated on plan of care and expected duration. Pain vc1 level reassessed. Patient states feeling better. Patient states symptoms have improved. 03:00 Reassessment: Patient and/or family updated on plan of care and expected duration. Pain vc1 level reassessed. Patient is alert, oriented x 3, equal unlabored respirations, skin warm/dry/pink. Patient states feeling better. Patient states symptoms have improved. Reassessment: Patient ambulated around room, steady on her feet, no complains of pain at this time. Neuro: Level of Consciousness is awake, alert, obeys commands, Oriented to person, place, time, situation, Appropriate for age. Overdose: 05/13 23:53 [place] Suicide Severity Screening: "In the past month, have you wished you were lp1 or wished you could go to sleep and not wake up?" Patient responds "no." "In the past month, have you actually had any thoughts of killing yourself?" Patient responds "no." "In your lifetime, have you ever done anything, started to do anything, or prepared to do anything to end your life?" Patient responds "no.". 05/14 03:30 [place] Suicide Severity Screening: "In the past month, have you wished you were vc1 or wished you could go to sleep and not wake up?" Patient responds "no.". Vital Signs: 05/13 23:15 BP 109 / 64; Pulse 84; Resp 18; Temp 98.2(TE); Pulse Ox 98% on R/A; Weight 95.25 kg lp1 (R); Height 5 ft. 0 in. (152.40 cm); 23:53 BP 95 / 72; ld1 05/14 00:00 BP 96 / 61; Pulse 76; Resp 20; Pulse Ox 96% on R/A; vc1 00:30 BP 97 / 59; Pulse 87; Resp 18; Pulse Ox 95% ; vc1 01:00 BP 97 / 60; Pulse 72; Resp 19; Pulse Ox 95% on R/A; vc1 02:00 BP 94 / 64; Pulse 71; Resp 20; Pulse Ox 96% ; vc1 02:30 BP 100 / 62; Pulse 80; Resp 95; Pulse Ox 95% ; vc1 03:18 BP 106 / 69; Pulse 72; Resp 18; Temp 97.3(O); Pulse Ox 98% on R/A; oe 05/13 23:15 Body Mass Index 41.01 (95.25 kg, 152.40 cm) lp1 ED Course: 05/13 23:05 Patient arrived in ED. es 23:37 Triage completed. lp1 23:37 Arm band placed on right wrist. lp1 23:43 Kevin De Anda MD is Attending Physician. hilton 23:47 Arjun Andrews NP is PHCP. pm1 23:53 COVID-19/FLU A+B (Document "Date of Onset" if Symptomatic) Sent. ld1 23:56 Valarie Arredondo, CATHY is Primary Nurse. vc1 05/14 00:10 CT Head Brain wo Cont In Process Unspecified. EDMS 03:30 No provider procedures requiring assistance completed. IV discontinued, intact, vc1 bleeding controlled, No redness/swelling at site. Pressure dressing applied. 03:33 Tono Colorado MD is Referral Physician. pm1 Administered Medications: No medications were administered Outcome: 03:33 Discharge ordered by MD. pm1 03:40 Discharged to home ambulatory. vc1 03:40 Condition: improved 03:40 Discharge instructions given to patient, significant other, Instructed on discharge instructions, follow up and referral plans. Demonstrated understanding of instructions, follow-up care. 03:40 Patient left the ED. vc1 Signatures: Dispatcher [employer] EDKevin Barrera MD MD cha Salyer, Edna es Pena, Laura, RN RN lp1 Arjun Andrews, TWISTER TENDER TWISTER TENDER pm1 Sami Jimenez Lauren, RN RN ld1 Valarie Arredondo RN RN vc1 Corrections: (The following items were deleted from the chart) 05/13 23:52 23:47 Reassessment: Patient reports to Provider taking 7 tablets of Tramadol at unknown lp1 time lp1 23:53 23:15 Risk Assessment: Do you want to hurt yourself or someone else? Patient reports no lp1 desire to harm self or others. lp1 23:53 23:53 [place] Suicide Severity Screening: "In the past month, have you wished you were lp1 or wished you could go to sleep and not wake up?" Patient responds "no." lp1 05/14 00:03 05/13 23:56 Reassessment: Called Poison Control at risk for CELL CHANGER and Respiratory vc1 depression, 3-6 obs cardiac monitoring seizure precautions. vc1
--- NOTE | 2021-05-14 03:34 | EDPHYS ---
Physician Documentation [facility] Name: Viola Menendez Age: 30 yrs Sex: Female : 1990 Arrival Date: 05/13/2021 Time: 23:05 Bed 13 Private MD: ED Physician Kevin De Anda HPI: 05/13 23:38 This 30 yrs old Female presents to ER via Wheelchair with complaints of Possible pm1 Overdose. 23:38 The patient presents to the emergency department after a known overdose, that was pm1 intentional, Patient reports taking 7 tramadol 50 mg to relax and forget about all the stresses in her life. Tramadol is not her prescription medication, she apparently found the tramadol. Context: Method: the patient has a confirmed or suspected ingestion, Time: 30 minute(s) ago, the OD/poisoning occurred at at home, Psychiatric history: the patient has a known psychiatric disorder, bipolar disorder, depression, Anxiety. Associated signs and symptoms: Pertinent positives: Sleepiness. Severity of symptoms: Pain is currently a 0 / 10. The patient has not experienced similar symptoms in the past. The patient has not recently seen a physician. 23:38 Patient denies taking the medication to kill or harm herself. 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 - Social history:: Smoking status: Patient denies any tobacco usage or history of. Patient uses street drugs, marijuana. ROS: 23:38 Constitutional: Negative for fever, chills, and weight loss, Cardiovascular: Negative pm1 for chest pain, palpitations, and edema, Respiratory: Negative for shortness of breath, cough, wheezing, and pleuritic chest pain, Abdomen/GI: Negative for abdominal pain, nausea, vomiting, diarrhea, and constipation, MS/Extremity: Negative for injury and deformity, Skin: Negative for injury, rash, and discoloration, Neuro: Negative for headache, weakness, numbness, tingling, and seizure. 23:38 Psych: Negative for homicidal ideation, suicidal ideation. 23:38 All other systems are negative. Exam: 23:38 Constitutional: This is a well developed, well nourished patient who is awake, alert, pm1 and in no acute distress. Head/Face: Normocephalic, atraumatic. 23:38 Skin: Warm, dry with normal turgor. Normal color with no rashes, no lesions, and no evidence of cellulitis. MS/ Extremity: Pulses equal, no cyanosis. Neurovascular intact. Full, normal range of motion. 23:38 Eyes: Exam is negative for acute changes, Extraocular movements: no acute changes, Conjunctiva: no acute changes, no injection. 23:38 ENT: Exam is negative for acute changes, Mouth: Lips: normal, moist, Oral mucosa: normal, pink and intact, moist. 23:38 Cardiovascular: Exam negative for acute changes, Rate: normal, Rhythm: regular, Pulses: no pulse deficits are appreciated. 23:38 Respiratory: Exam negative for acute changes, respiratory distress, shortness of breath. 23:38 Abdomen/GI: Inspection: obese Palpation: abdomen is soft and non-tender, in all quadrants. 23:38 Neuro: Exam negative for acute changes, Orientation: is normal, Mentation: sleepy, Motor: moves all fours, Sensation: no obvious gross deficits. Vital Signs: 23:15 BP 109 / 64; Pulse 84; Resp 18; Temp 98.2(TE); Pulse Ox 98% on R/A; Weight 95.25 kg lp1 (R); Height 5 ft. 0 in. (152.40 cm); 23:53 BP 95 / 72; ld1 03 00:00 BP 96 / 61; Pulse 76; Resp 20; Pulse Ox 96% on R/A; vc1 00:30 BP 97 / 59; Pulse 87; Resp 18; Pulse Ox 95% ; vc1 01:00 BP 97 / 60; Pulse 72; Resp 19; Pulse Ox 95% on R/A; vc1 02:00 BP 94 / 64; Pulse 71; Resp 20; Pulse Ox 96% ; vc1 02:30 BP 100 / 62; Pulse 80; Resp 95; Pulse Ox 95% ; vc1 03:18 BP 106 / 69; Pulse 72; Resp 18; Temp 97.3(O); Pulse Ox 98% on R/A; oe 05/13 23:15 Body Mass Index 41.01 (95.25 kg, 152.40 cm) lp1 MDM: 05/13 23:44 Patient medically screened. the [facility] 05/14 00:44 Data reviewed: vital signs. Data interpreted: Pulse oximetry: on room air is 98 %. pm1 Interpretation: normal. 01:11 ED course: Boyfriend corroborates the patient's story that she took the tramadol to pm1 help her forget about her stressors. Updated him on the current plan of care and duration of observation time per poison control. 03:30 ED course: Patient wants to go home now. Patient AAOx4. Patient is with her significant pm1 other. Explained to the patient poison control recommended 10 hours total of observation but patient still wants to go home. 03:32 Counseling: I had a detailed discussion with the patient and/or guardian regarding: the pm1 historical points, exam findings, and any diagnostic results supporting the discharge/admit diagnosis, lab results, radiology results, the need for outpatient follow up, to return to the emergency department if symptoms worsen or persist or if there are any questions or concerns that arise at home. 05/13 23:34 Order name: Urine Dipstick-Ancillary; Complete Time: 23:47 EDAZ 05/13 23:36 Order name: Acetaminophen [facility] 05/13 23:36 Order name: Basic Metabolic Panel [facility] 05/13 23:36 Order name: CBC with Diff [facility] 05/13 23:36 Order name: ETOH Level [facility] 05/13 23:36 Order name: Hepatic Function [facility] 05/13 23:36 Order name: PT-INR [facility] 05/13 23:36 Order name: Ptt, Activated; Complete Time: 00:35 [facility] 05/13 23:36 Order name: Salicylate; Complete Time: 00:54 [facility] 05/13 23:36 Order name: Urine Drug Screen; Complete Time: 00:35 [facility] 05/13 23:36 Order name: Test, Serum; Complete Time: 00:35 [facility] 05/13 23:37 Order name: Acetaminophen Level; Complete Time: 01:02 EDAZ 05/13 23:37 Order name: Basic Metabolic Panel; Complete Time: 01:02 EDAZ 05/13 23:37 Order name: CBC with Automated Diff; Complete Time: 00:35 EDMS 05/13 23:36 Order name: EKG; Complete Time: 23:37 mw2 05/13 23:36 Order name: EKG - Nurse/Tech; Complete Time: 23:53 mw2 05/13 23:36 Order name: IV Saline Lock; Complete Time: 23:53 mw2 05/13 23:36 Order name: Labs collected and sent; Complete Time: 23:53 mw2 05/13 23:36 Order name: Suicide Screening ([place]); Complete Time: 23:53 mw2 05/13 23:36 Order name: Urine Dipstick-Ancillary (obtain specimen); Complete Time: 23:36 mw2 05/13 23:37 Order name: Alcohol Serum/Plasma; Complete Time: 00:35 EDMS 05/13 23:37 Order name: Liver (Hepatic) Function; Complete Time: 01:02 EDMS 05/13 23:37 Order name: Protime (+INR); Complete Time: 00:35 EDMS 05/13 23:38 Order name: COVID-19/FLU A+B (Document "Date of Onset" if Symptomatic); Complete Time: mw2 01:11 05/13 23:42 Order name: CT Head Brain wo Cont 05/14 00:10 Order name: Magnesium; Complete Time: 01:02 EDMS Administered Medications: No medications were administered Disposition Summary: 05/14/21 03:33 Discharge Ordered Location: Home pm1 Problem: new pm1 Symptoms: have improved pm1 Condition: Stable pm1 Diagnosis - Abuse of other non-psychoactive substances - overdose, non toxic pm1 Followup: hilton - With: Private Physician - When: 1 - 2 days - Reason: Recheck today's complaints, Continuance of care, Re-evaluation by your physician Followup: hilton - With: - When: 2 - 3 days - Reason: Recheck today's complaints, Re-evaluation by your physician Discharge Instructions: - Discharge Summary Sheet hilton - Substance Use Disorder hilton - Prescription Drug Misuse Information hilton - Substance Use Disorder and Mental Illness hilton Forms: - Medication Reconciliation Form pm1 - Thank You Letter pm1 - Antibiotic Education pm1 - Prescription Opioid Use pm1 Addendum: 05/15/2021 07:07 Co-signature as Attending Physician, Kevin De Anda MD I agree with the assessment and c erickson plan of care. Signatures: Dispatcher [employer] EDKevin Barrera MD MD cha Pena, Laura, RN RN lp1 Arjun Andrews, SHAKE MAKER SHAKE MAKER pm1 Rasheed Kennedy mw2 Corrections: (The following items were deleted from the chart) 05/14 00:08 00:00 MAGNESIUM+C.LAB.BRZ ordered. LEONARDOAZ LEONARDOAZ
[2021-05-14 04:11] VITALS: BP 106/69; TEMP 97.3; O2SAT 98
--- NOTE | 2021-05-14 08:43 | EKG ---
Test Date: 2021-05-13 Test Time: 23:28:22 Arborist Climber: BEHZAD MEASUREMENT RESULTS: Intervals: Rate: 76 MI: 132 QRSD: 92 QT: 378 QTc: 425 Norman: P: 21 MI: 132 QRS: 59 T: 33 INTERPRETIVE STATEMENTS: Normal sinus rhythm Normal ECG Compared to ECG 08/20/2019 15:36:45 Myocardial infarct finding no longer present Electronically Signed On 05-14-21 08:42:07 CDT by Calvin Patel
--- NOTE | 2021-05-14 12:41 | RAD REPORT ---
EXAM DESCRIPTION: CT - Head Brain Wo Cont - 05/14/2021 5:11 am CLINICAL HISTORY: The patient is 30 years old and is Female; CONFUSED TECHNIQUE: Axial computed tomography images of the head/brain without intravenous contrast. Sagitt al and coronal reformatted images were created and reviewed. This CT exam was performed using one o r more of the following dose reduction techniques: automated exposure control, adjustment of the mA and/or kV according to patient size, and/or use of iterative reconstruction technique. COMPARISON: No relevant prior studies available. FINDINGS: Brain: Unremarkable. No hemorrhage. No significant white matter disease. No edema. Ventricles: Unremarkable. No ventriculomegaly. Bones/joints: Unremarkable. No acute fracture. Soft tissues: Unremarkable. Sinuses: Unremarkable as visualized. Mastoid air cells: Unremarkable as visualized. No mastoid effusion. IMPRESSION: No acute intracranial abnormality. Electronically signed by: David Landis MD 05/14/2021 12:21 AM CDT Due to temporary technical issues with the PACS/Fluency reporting system, reports are being signed by the in house radiologists without review as a courtesy to insure prompt reporting. The interpreting radiologist is fully responsible for the content of the report.
== END 2021-05-14 03:40 | disposition home or self-care (01) ==
LOC: ER 23:02
DX: F11.10 Opioid abuse, uncomplicated (principal); F31.9 Bipolar disorder, unspecified; Z20.822 Contact with and (suspected) exposure to COVID-19
CPT/HCPCS: 93005; 85025; 80048; 36415; 80320; 83735; 80329 ×2; 84703; 85610; 80076; 85730; 81003; 0240U; 80307; 70450; 99283

== ENCOUNTER 2021-10-18 06:44 | Emergency (ER) | payer SELFPAY ==
--- OUTSIDE RECORDS SUMMARY | 2021-10-18 06:46 | XMS REPORT | Continuity of Care Document ---
:1990 Author Organization [facility] t Address [address] [place]. [address] [place] [id number] Care Team Providers Name Role Phone Ana Nur MD Attending Clinician Aan Nur MD Admitting Clinician Problems This patient has no known problems. Allergies, Adverse Reactions, Alerts This patient has no known allergies or adverse reactions. Medications This patient has no known medications. Procedures This patient has no known procedures. Encounters Start End Encounter Admission Attending Care Care Encounter Source Date/Time Date/Time Type Type Clinicians Facility Department ID 2019-03-30 [facility]03[id number] 22:50:00 12:44:00 Encounter Ana Kraus [id number] [place] [id number] [facility] [id number] Results This patient has no known results.
[2021-10-18 07:19] LABS: Urine Blood Negative (Negative); Urine Glucose Negative (Negative); Urine Protein Negative (Negative)
[2021-10-18 07:37] LABS: Barbiturates NEGATIVE (NEGATIVE); Benzodiazepines NEGATIVE (NEGATIVE); Cocaine NEGATIVE (NEGATIVE); METHAMPHETAM NEGATIVE (NEGATIVE); Methadone NEGATIVE (NEGATIVE); Opiates NEGATIVE (NEGATIVE); Phencyclidine NEGATIVE (NEGATIVE); THC Cannibis NEGATIVE (NEGATIVE)
[2021-10-18 08:04] LABS: Hematocrit 37.2 % (36.0-45.0); Lymphocytes % 40.2 % (15.3-44.8); MPV 8.9 fL (7.6-11.3); RBC Red Blood Cell Count 4.13 M/uL (3.86-4.86)
[2021-10-18 08:08] LABS: Protime INR 1.12
[2021-10-18] MEDS ORDERED: NA CHLORIDE 0.9% 500 ML ONE (08:18)
[2021-10-18 08:22] LABS: Albumin 3.9 g/dL (3.4-5.0); Bilirubin Direct 0.1 mg/dL (0-0.2); Bilirubin Total 0.6 mg/dL (0.2-1.0); Potassium 3.8 mmol/L (3.5-5.1); Protein, Total 8.3 g/dL (6.4-8.2)
--- NOTE | 2021-10-18 10:51 | ER ---
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 Coronavirus screen: Vaccine status: Patient reports being unvaccinated. Ebola Screen: Patient negative for fever greater than or equal to 101.5 degrees Fahrenheit, and additional compatible Ebola Virus Disease symptoms. Initial Sepsis Screen: Does the patient meet any 2 criteria? No. Patient's initial sepsis screen is negative. Does the patient have a suspected source of infection? No. Patient's initial sepsis screen is negative. Risk Assessment: Do you want to hurt yourself or someone else? Patient reports no desire to harm self or others. Onset of symptoms was October 18, 2021 at 04:00. 07:05 Method Of Arrival: Ambulatory 07:05 Acuity: SAVANNAH 3 kl Triage Assessment: 07:07 General: Appears in no apparent distress. Behavior is flat. Pain: Denies pain. Historical: - Allergies: 07:07 NKA; kl - Home Meds: 07:07 Depakote Oral [Active]; Lexapro Oral [Active]; Seroquel Oral [Active]; Wellbutrin Oral [Active]; - PMHx: 07:07 Anxiety; Bipolar disorder; Depression; PCOS; kl - PSHx: 07:07 section; kl - Immunization history:: Adult Immunizations not up to date. - Social history:: Smoking status: unknown. Screenin:17 Abuse screen: Denies threats or abuse. Nutritional screening: No deficits noted. em6 Tuberculosis screening: No symptoms or risk factors identified. Fall Risk IV access (20 points). Total Sutton Fall Scale indicates No Risk (0-24 pts). Assessment: 07:12 General: Appears in no apparent distress. comfortable, Behavior is calm, cooperative. em6 Pain: Denies pain. Neuro: Hawkins Agitation-Sedation Scale (RASS): 0 - Alert and Calm Level of Consciousness is awake, alert, obeys commands, Oriented to person, place, time, situation. Cardiovascular: Patient's skin is warm and dry. Rhythm is sinus rhythm. Respiratory: Airway is patent Respiratory effort is even, unlabored, Respiratory pattern is regular, symmetrical, Breath sounds are clear bilaterally. GI: No signs and/or symptoms were reported involving the gastrointestinal system. : No signs and/or symptoms were reported regarding the genitourinary system. EENT: No signs and/or symptoms were reported regarding the EENT system. Derm: No signs and/or symptoms reported regarding the dermatologic system. Musculoskeletal: Circulation, motion, and sensation intact. Range of motion: intact in all extremities. 07:22 Reassessment: poison control recommendation: do carbonator, EKG and benzodiazepine em6 prn for seizure, anxiety, tachycardia. monitor mental status, VS, airway and complete tox screen. if EKG shows prolong QT check mg and K and start appropriate treatment. id QRS is wide start on sodium bicarb. do a 4 hr post ingestion Tylenol level. if 150+ start antidote. once she is baseline do a psych evaluation if needed. . 08:15 Reassessment: No changes from previously documented assessment. Patient and/or family em6 updated on plan of care and expected duration. Pain level reassessed. 09:15 Reassessment: No changes from previously documented assessment. Patient and/or family em6 updated on plan of care and expected duration. Pain level reassessed. 10:15 Reassessment: No changes from previously documented assessment. Patient and/or family em6 updated on plan of care and expected duration. Pain level reassessed. 11:02 Reassessment: No changes from previously documented assessment. Patient and/or family em6 updated on plan of care and expected duration. Pain level reassessed. Vital Signs: 07:05 BP 105 / 71; Pulse 68; Resp 16; Temp 98.3(O); Pulse Ox 100% on R/A; Weight 83.91 kg; kl Height 5 ft. (152.40 cm); Pain 0/10; 08:15 BP 108 / 70; Pulse 62; Resp 17; Pulse Ox 97% on R/A; em6 09:30 BP 110 / 76; Pulse 74; Resp 18; Pulse Ox 99% ; em6 10:30 BP 112 / 84; Pulse 70; Resp 16; Pulse Ox 100% ; em6 11:00 BP 102 / 80; Pulse 68; Resp 16; Pulse Ox 98% ; em6 07:05 Body Mass Index 36.13 (83.91 kg, 152.40 cm) ED Course: 07:00 Patient arrived in ED. jb4 07:03 Kian Thorne MD is Attending Physician. kdr 07:07 Triage completed. kl 07:12 Arm band placed on. jd3 08:00 Inserted saline lock: 22 gauge in right hand, using aseptic technique. Blood collected. jd3 08:17 Patient has correct armband on for positive identification. Bed in low position. Call em6 light in reach. Side rails up X2. hr assistant on. Pulse ox on. NIBP on. Warm blanket given. 08:27 Notified ED physician of a critical lab result(s). notified Dr thorne of acetaminophen em6 level of 52.4. no new orders given at this time. 11:12 No provider procedures requiring assistance completed. IV discontinued, intact, em6 bleeding controlled, No redness/swelling at site. Pressure dressing applied. Administered Medications: 08:12 Drug: NS 0.9% 500 ml Route: IV; Rate: bolus; Site: right hand; em6 11:15 Follow up: Response: No adverse reaction; IV Status: Completed infusion; IV Intake: em6 500ml Medication: 08:18 VIS not applicable for this client. em6 Intake: 11:15 IV: 500ml; Total: 500ml. em6 Outcome: 10:50 Discharge ordered by . kdr 11:13 Discharged to home ambulatory, with significant other. em6 11:13 Condition: stable 11:13 Discharge instructions given to patient, significant other, Instructed on discharge instructions, follow up and referral plans. Demonstrated understanding of instructions, follow-up care. 11:14 Patient left the ED. em6 Signatures: Mel Christina RN RN kl Rittger, Kevin, MD MD kdr Bryson, James, RN RN jbObie Pichardo RN RN jShyanne Lawrence RN RN em6 Corrections: (The following items were deleted from the chart) 11:15 11:12 Response: No adverse reaction; IV Intake: 500ml em6 em6
--- NOTE | 2021-10-18 10:51 | EDPHYS ---
Physician Documentation [facility] Name: Viola Menendez Age: 31 yrs Sex: Female : 1990 Arrival Date: 10/18/2021 Time: 07:00 Bed 19 Private MD: ED Physician Kian Gomez HPI: 10/18 07:23 This 31 yrs old Female presents to ER via Ambulatory with complaints of Possible kdr Tylenol overdose. 07:23 The patient states that she was trying to get to sleep last night and took somewhere kdr between 12 and 15 Tylenol PM's. She denies that she was attempting to harm her self.. Onset: The symptoms/episode began/occurred this morning. Severity of symptoms: At their worst the symptoms were mild in the emergency department the symptoms are unchanged. The patient has not experienced similar symptoms in the past. The patient has not recently seen a physician. Patient denies self-harm intent. Historical: - Allergies: 07:07 NKA; kl - Home Meds: 07:07 Depakote Oral [Active]; Lexapro Oral [Active]; Seroquel Oral [Active]; Wellbutrin Oral kl [Active]; - PMHx: 07:07 Anxiety; Bipolar disorder; Depression; PCOS; kl - PSHx: 07:07 section; kl - Immunization history:: Adult Immunizations not up to date. - Social history:: Smoking status: unknown. ROS: 07:25 Constitutional: Negative for fever, chills, and weight loss, Eyes: Negative for injury, kdr pain, redness, and discharge, ENT: Negative for injury, pain, and discharge, Neck: Negative for injury, pain, and swelling, Cardiovascular: Negative for chest pain, palpitations, and edema, Respiratory: Negative for shortness of breath, cough, wheezing, and pleuritic chest pain, Abdomen/GI: Negative for abdominal pain, nausea, vomiting, diarrhea, and constipation, Back: Negative for injury and pain, : Negative for injury, bleeding, discharge, and swelling, MS/Extremity: Negative for injury and deformity, Skin: Negative for injury, rash, and discoloration, Neuro: Negative for headache, weakness, numbness, tingling, and seizure activity. Psych: Negative for depression, anxiety, suicide ideation, homicidal ideation, and hallucinations, Allergy/Immunology: Negative for hives, rash, and allergies, Endocrine: Negative for neck swelling, polydipsia, polyuria, polyphagia, and marked weight changes, Hematologic/Lymphatic: Negative for swollen nodes, abnormal bleeding, and unusual bruising. 07:25 Neuro: Positive for Patient appears somewhat somnolent but otherwise is alert and appropriate and denies SI/HI. Exam: 07:25 Constitutional: This is a well developed, well nourished patient who is awake, but kdr somnolent and in no acute distress. Head/Face: Normocephalic, atraumatic. Eyes: Pupils equal round and reactive to light, extra-ocular motions intact. Lids and lashes normal. Conjunctiva and sclera are non-icteric and not injected. Cornea within normal limits. Periorbital areas with no swelling, redness, or edema. Neck: Trachea midline, no thyromegaly or masses palpated, and no cervical lymphadenopathy. Supple, full range of motion without nuchal rigidity, or vertebral point tenderness. No Meningismus. Chest/axilla: Normal chest wall appearance and motion. Nontender with no deformity. No lesions are appreciated. Cardiovascular: Regular rate and rhythm with a normal S1 and S2. No gallops, murmurs, or rubs. Normal PMI, no JVD. No pulse deficits. Respiratory: Lungs have equal breath sounds bilaterally, clear to auscultation and percussion. No rales, rhonchi or wheezes noted. No increased work of breathing, no retractions or nasal flaring. Abdomen/GI: Soft, non-tender, with normal bowel sounds. No distension or tympany. No guarding or rebound. No evidence of tenderness throughout. Back: No spinal tenderness. No costovertebral tenderness. Full range of motion. Skin: Warm, dry with normal turgor. Normal color with no rashes, no lesions, and no evidence of cellulitis. MS/ Extremity: Pulses equal, no cyanosis. Neurovascular intact. Full, normal range of motion. Psych: Awake, alert, with orientation to person, place and time. Behavior, mood, and affect are within normal limits. 07:25 Neuro: Orientation: is normal, Mentation: is normal, slow to respond. 09:08 ECG was reviewed by the Attending Physician. kdr Vital Signs: 07:05 BP 105 / 71; Pulse 68; Resp 16; Temp 98.3(O); Pulse Ox 100% on R/A; Weight 83.91 kg; kl Height 5 ft. (152.40 cm); Pain 0/10; 08:15 BP 108 / 70; Pulse 62; Resp 17; Pulse Ox 97% on R/A; em6 09:30 BP 110 / 76; Pulse 74; Resp 18; Pulse Ox 99% ; em6 10:30 BP 112 / 84; Pulse 70; Resp 16; Pulse Ox 100% ; em6 11:00 BP 102 / 80; Pulse 68; Resp 16; Pulse Ox 98% ; em6 07:05 Body Mass Index 36.13 (83.91 kg, 152.40 cm) kl MDM: 07:25 Data reviewed: vital signs, nurses notes, lab test result(s), EKG. Counseling: I had a kdr detailed discussion with the patient and/or guardian regarding: the historical points, exam findings, and any diagnostic results supporting the discharge/admit diagnosis, lab results, the need for outpatient follow up. 10:50 Patient medically screened. kdr 10/18 07:09 Order name: Acetaminophen; Complete Time: 09:07 kdr 10/18 07:09 Order name: Basic Metabolic Panel; Complete Time: 09:07 kdr 10/18 07:09 Order name: CBC with Diff; Complete Time: 09: kdr 10/18 07:09 Order name: ETOH Level; Complete Time: 09:07 kdr 10/18 07:09 Order name: Hepatic Function; Complete Time: 09:07 kdr 10/18 07:09 Order name: PT-INR; Complete Time: 09:07 kdr 10/18 07:09 Order name: Ptt, Activated; Complete Time: 09: kdr 10/18 07:09 Order name: Salicylate; Complete Time: 09:07 kdr 10/18 07:09 Order name: Urine Drug Screen; Complete Time: 09:07 kdr 10/18 07:20 Order name: Urine Dipstick-Ancillary; Complete Time: 09:07 EDMS 10/18 07:25 Order name: Tegretol Level; Complete Time: 09:07 kdr 10/18 07:27 Order name: Urine --Ancillary (enter results); Complete Time: 10:20 eb 10/18 09:08 Order name: Acetaminophen; Complete Time: 10:48 kdr 10/18 07:09 Order name: EKG; Complete Time: 07:10 kdr 10/18 07:09 Order name: EKG - Nurse/Tech; Complete Time: 08: kdr 10/18 07:09 Order name: IV Saline Lock; Complete Time: 08:07 kdr 10/18 07:09 Order name: Labs collected and sent; Complete Time: 08:07 kdr 10/18 07:09 Order name: Suicide Screening ([place]ins); Complete Time: : kdr 10/18 07:09 Order name: Urine Dipstick-Ancillary (obtain specimen); Complete Time: : kdr 10/18 07:09 Order name: Urine Test (obtain specimen); Complete Time: : kdr EC:08 Rate is 62 beats/min. Rhythm is regular, Normal Sinus Rhythm with No ectopy. QRS Strong kdr is Normal. CA interval is normal. QRS interval is normal. QT interval is normal. Clinical impression: Normal ECG. Administered Medications: 08:12 Drug: NS 0.9% 500 ml Route: IV; Rate: bolus; Site: right hand; em6 11:15 Follow up: Response: No adverse reaction; IV Status: Completed infusion; IV Intake: em6 500ml Disposition Summary: 10/18/21 10:50 Discharge Ordered Location: Home kdr Problem: new kdr Symptoms: have improved kdr Condition: Stable kdr Diagnosis - Accidental Tylenol overdose: Nontoxic kdr Followup: kdr - With: Private Physician - When: 2 - 3 days - Reason: If symptoms return, Further diagnostic work-up, Recheck today's complaints, Continuance of care, Re-evaluation by your physician Discharge Instructions: - Discharge Summary Sheet kdr - Acetaminophen Overdose kdr Forms: - Medication Reconciliation Form kdr - Thank You Letter kdr Signatures: Dispatcher [employer] Mel Sanz RN RN kl Rittger, Kevin, MD MD kdr Martinez, Erika, RN RN em6
[2021-10-18 11:31] VITALS: TEMP 98.3
[2021-10-18 11:55] VITALS: BP 102/80; O2SAT 98
== END 2021-10-18 11:14 | disposition home or self-care (01) ==
LOC: ER 06:44
DX: T39.1X1A Poisoning by 4-Aminophenol derivatives, accidental (unintentional), initial encounter (principal); F31.9 Bipolar disorder, unspecified
CPT/HCPCS: 36415; 80048; 80076; 80156; 80307; 80320; 80329; 81003; 81025; 85025; 85610; 85730; 96360; 96361; 99284; J7040

== ENCOUNTER 2024-04-30 06:01 | Emergency (ER) | payer SELFPAY ==
--- OUTSIDE RECORDS SUMMARY | 2024-04-30 06:04 | XMS REPORT | Continuity of Care Document ---
Author Name Unknown Address [address] [place] [address] [facility] Address [address] [place] [address] Care Team Providers Care Machine Cloth Examiner Name Role Phone Ana Nur MD Attending Clinician [phone] Ana Nur MD Admitting Clinician [phone] Encounters Start Date/Time End Date/Time Encounter Type Admission Type Attending Clinicians Care Facility Care Department Encounter ID Source 2019-03-30 22:50:00 2019-03-31 12:44:00 Hospital Encounter Ana Nur [facility] [id number]
--- NOTE | 2024-04-30 06:33 | ER ---
Nurse's Notes [facility] Name: Viola Menendez Age: 33 yrs Sex: Female : 1990 Arrival Date: 04/30/2024 Time: 06:01 Bed 6 Private MD: Diagnosis: Acute pharyngitis, unspecified Presentation: 04/30 06:20 Chief complaint: Patient states: FEVER/COUGH/CONGESTION/SORE THROAT/RUNNY NOSE/CP WITH br2 COUGH. Coronavirus screen: Client denies travel out of the [place] in the last 14 days. Client presents with at least one sign or symptom that may indicate coronavirus-19. Ebola Screen: Patient denies exposure to infectious person. Initial Sepsis Screen: Does the patient meet any 2 criteria? No. Patient's initial sepsis screen is negative. Does the patient have a suspected source of infection? No. Patient's initial sepsis screen is negative. Risk Assessment: Do you want to hurt yourself or someone else? Patient reports no desire to harm self or others. Onset of symptoms was April 27, 2024. 06:20 Method Of Arrival: Ambulatory br2 06:20 Method Of Arrival: Ambulatory br2 06:20 Acuity: SAVANNAH 4 br2 Triage Assessment: 06:22 General: Appears in no apparent distress. comfortable, Behavior is calm, cooperative. br2 Pain: Complains of pain in anterior aspect of right upper chest and anterior aspect of left upper chest Pain currently is 7 out of 10 on a pain scale. EENT: Reports difficulty swallowing nasal congestion nasal discharge. Neuro: Hawkins Agitation-Sedation Scale (RASS): -1 Drowsy Level of Consciousness is awake, alert, obeys commands, Oriented to person, place, time, situation. Respiratory: Airway is patent Respiratory effort is even, unlabored, Respiratory pattern is regular, symmetrical. Historical: - Allergies: 06:22 NKA; br2 - PMHx: 06:22 Anxiety; Bipolar disorder; Depression; PCOS; br2 - PSHx: 06:22 section; br2 - Immunization history:: Adult Immunizations up to date. - Infectious Disease History:: Denies. - Social history:: Smoking status: Reported history of juuling and/or vaping. Patient/guardian denies using alcohol, street drugs. - Family history:: not pertinent. - Hospitalizations: : No recent hospitalization is reported. Screenin:24 [facility] ED Fall Risk Assessment (Adult) History of falling in the last 3 months, br2 including since admission No falls in past 3 months (0 pts) Confusion or Disorientation No (0 pts) Intoxicated or Sedated No (0 pts) Impaired Gait No (0 pts) Mobility Assist Device Used No (0 pt) Altered Elimination No (0 pt) Score/Fall Risk Level 0 - 2 = Low Risk Oriented to surroundings. Abuse screen: Denies threats or abuse. Denies injuries from another. Nutritional screening: No deficits noted. Tuberculosis screening: No symptoms or risk factors identified. Assessment: 06:35 General: Appears uncomfortable. Neuro: Level of Consciousness is awake, alert, obeys kd3 commands, Oriented to person, place, time, situation. Cardiovascular: Patient's skin is warm and dry. Respiratory: Breath sounds are clear bilaterally. Vital Signs: 06:20 BP 101 / 71; Pulse 84; Resp 18; Temp 98(TE); Pulse Ox 98% on R/A; Weight 83.91 kg; br2 Height 5 ft. 0 in. ; Pain 7/10; 06:20 Body Mass Index 36.13 (83.91 kg, 152.4 cm) br2 06:20 Pain Scale: Adult br2 ED Course: 06:06 Patient arrived in ED. gm2 06:08 Dylan Molina MD is Attending Physician. rn 06:18 Natividad Tucker RN is Primary Nurse. kd3 06:22 Triage completed. br2 06:24 Bed in low position. Call light in reach. Side rails up X 1. Provided Education on: br2 PLAN OF CARE. 06:35 Arm band placed on right wrist. kd3 06:36 No provider procedures requiring assistance completed. Patient did not have IV access kd3 during this emergency room visit. Administered Medications: No medications were administered Medication: 06:36 VIS not applicable for this client. kd3 Outcome: 06:32 Discharge ordered by . rn 06:36 Discharged to home ambulatory, kd3 06:36 Condition: stable 06:36 Discharge instructions given to patient, Instructed on discharge instructions, follow up and referral plans. Demonstrated understanding of instructions, follow-up care, medications, Prescriptions given X 1, 06:36 Patient left the ED. kd3 Signatures: Dylan Molina MD MD rn Doucette, Kyli RN RN kd3 Flavia Dai gm2 Angelina Pitts RN RN br2
--- NOTE | 2024-04-30 06:33 | EDPHYS ---
Physician Documentation [facility] Name: Viola Menendez Age: 33 yrs Sex: Female : 1990 Arrival Date: 04/30/2024 Time: 06:01 Bed 6 Private MD: ED Physician Dylan Molina HPI: 04/30 06:29 This 33 yrs old Female presents to ER via Ambulatory with complaints of Fever, Cough, rn Congestion, Sore Throat. 06:29 The patient reports fever, not measured (subjective). Onset: The symptoms/episode rn began/occurred 3 day(s) ago. Modifying factors: there are no obvious modifying factors. Severity of symptoms: At their worst the symptoms were mild in the emergency department the symptoms are unchanged. The patient has not experienced similar symptoms in the past. Patient reports subjective fever, cough, congestion, sore throat and losing her voice. Denies shortness of breath or hemoptysis.. Historical: - Allergies: 06:22 NKA; br2 - PMHx: 06:22 Anxiety; Bipolar disorder; Depression; PCOS; br2 - PSHx: 06:22 section; br2 - Immunization history:: Adult Immunizations up to date. - Infectious Disease History:: Denies. - Social history:: Smoking status: Reported history of juuling and/or vaping. Patient/guardian denies using alcohol, street drugs. - Family history:: not pertinent. - Hospitalizations: : No recent hospitalization is reported. ROS: 06:29 Constitutional: Positive for subjective fever and chills ENT: Positive for congestion rn and sore throat Cardiovascular: Negative for chest pain, palpitations, and edema, Respiratory: Positive for cough, negative for shortness of breath Exam: 06:29 Constitutional: This is a well developed, well nourished patient who is awake, alert, rn and in no acute distress. ENT: Pharyngeal erythema, no stridor, uvula midline Neck: Nontender cervical lymphadenopathy. No meningismus Respiratory: Speaking full sentences, unlabored. No retractions Skin: Warm, dry, no lesions Vital Signs: 06:20 BP 101 / 71; Pulse 84; Resp 18; Temp 98(TE); Pulse Ox 98% on R/A; Weight 83.91 kg; br2 Height 5 ft. 0 in. ; Pain 7/10; 06:20 Body Mass Index 36.13 (83.91 kg, 152.4 cm) br2 06:20 Pain Scale: Adult br2 MDM: 06:08 Medical Screening Exam initiated rn 06:29 Differential diagnosis: viral Infection, bacterial infection, URI. Data reviewed: vital rn signs, nurses notes, and as a result, I will discharge patient. Counseling: I had a detailed discussion with the patient and/or guardian regarding the historical points, exam findings, and any diagnostic results supporting the discharge/admit diagnosis, the need for outpatient follow up, to return to the emergency department if symptoms worsen or persist or if there are any questions or concerns that arise at home. Special discussion: I discussed with the patient/guardian in detail that at this point there is no indication for admission to the hospital. It is understood, however, that if the symptoms persist or worsen the patient needs to return immediately for re-evaluation. Administered Medications: No medications were administered Disposition Summary: 04/30/24 06:32 Discharge Ordered Notes: Location: Home rn Problem: new rn Symptoms: are unchanged rn Condition: Stable rn Diagnosis - Acute pharyngitis, unspecified rn Followup: rn - With: Private Physician - When: As needed - Reason: Recheck today's complaints, Re-evaluation by your physician Discharge Instructions: - Discharge Summary Sheet rn - Pharyngitis rn Forms: - Medication Reconciliation Form rn - Antibiotic product management internship - Prescription Opioid Use rn - Patient Portal Instructions rn - Leadership Thank You Letter rn Prescriptions: - Zithromax Z-Milan 250 mg Oral Tablet - take 1 tablet ORAL route as directed for 5 days Day 1 - take two (2) tablets rn one time. Day 2, 3, 4 , 5 take one (1) tablet once daily.; 6 tablet; Refills: 0, Product Selection Permitted Signatures: Dylan Molina MD MD rn Riddle, Belinda, RN RN br2 Corrections: (The following items were deleted from the chart) 06:32 06:29 Constitutional: This is a well developed, well nourished patient who is awake, rn alert, and in no acute distress. ENT: Pharyngeal erythema, no stridor, uvula midline Neck: Nontender cervical lymphadenopathy. No meningismus Respiratory: Speaking full sentences, unlabored. No retractions rn
[2024-04-30 06:48] VITALS: BP 101/71; TEMP 98; O2SAT 98
== END 2024-04-30 06:36 | disposition home or self-care (01) ==
LOC: ER 06:01
DX: J02.9 Acute pharyngitis, unspecified (principal); R05.9 Cough, unspecified
CPT/HCPCS: 99283